=== PATIENT | female | born 1950 | race Two or more races ===

== ENCOUNTER 2019-07-31 13:07 | Inpatient (IN) | payer SELFPAY ==
[~2019-07-31] VITALS: Ht 149.9 cm; Wt 43.1 kg
[2019-07-31 13:07] VITALS: BP 168/72
[~2019-07-31 13:07] MED LIST: ACETAMINOPHEN-1 EAC1 ORAL; NORVASC5 MG ORAL
--- NOTE | 2019-07-31 13:07 | NUR ---
ED Nurse Note: Pt brought in by ambulance from home d/t mechanical fall. Pt reports left shoulder and arm pain 02/20. Pt receives HD M/W/F and last time she received HD was yesterday. Pt A+Ox4, libyan speaking primarily. Respirations even and unlabored on room air. Vitals stable as documented.
[2019-07-31] MEDS ORDERED: Acetaminophen 500mg (ES) tab ORAL ONE ×2 (13:15→13:19)
--- NOTE | 2019-07-31 13:15 | Emergency Room Report ---
History of Present Illness General Chief Complaint: Multiple Trauma/Fall Source: Patient (Bc Chapman MD) Present Illness HPI 69-year-old female presents with left shoulder pain left rib pain after mechanical fall in the bathroom no LOC did not hit head, no nausea no vomiting endorses sharp achy pain aggravated with movement alleviated with rest severity is mild, intermittent no shortness of breath patient presents for evaluation COVID-19 risk:Contact w/high r: No COVID-19 risk:Travel to affect: No Has patient experienced henderson: No (Bc Chapman MD) Allergies: Coded Allergies: No Known Allergies (Unverified , 06/01/14) Patient History Past Medical History: see triage record Now: No (Bc Chapman MD) Nursing Documentation-[facility] Hx Hypertension: Yes Hx Diabetes: Yes Hx Dialysis: Yes - M,W,F (Bc Chapman MD) Review of Systems All Other Systems: negative except mentioned in HPI (Bc Chapman MD) Physical Exam Vital Signs Date Time Temp Pulse Resp B/P (MAP) Pulse Ox O2 Delivery O2 Flow Rate FiO2 07/31/19 12:56 98.2 74 20 170/63 (98) 98 Room Air Sp02 EP Interpretation: reviewed, normal General Appearance: well appearing, no apparent distress, alert Head: normocephalic, atraumatic Eyes: bilateral eye PERRL, bilateral eye EOMI ENT: uvula midline, moist mucus membranes Neck: supple, thyroid normal, no bony tend, supple/symm/no masses Respiratory: lungs clear, no respiratory distress, no retraction, no accessory muscle use Cardiovascular #1: normal peripheral pulses, regular rate, rhythm, no edema, no gallop, no murmur Gastrointestinal: non tender, soft, no guarding, no rebound Musculoskeletal: other - Left chest wall tender to palpation no step-offs, left shoulder tender to palpation, left humerusObvious deformity, tender to palpation, left elbow tender to palpation no obvious deformity 2+ radial pulses , radial median ulnar nerve intact, patient left upper extremity 5 out of 5 speech clinician strength, back: No midline tenderness no step-offs Neurologic: alert, oriented x3 Psychiatric: mood/affect normal Skin: no rash, warm/dry (Bc Chapman MD) Medical Decision Making Diagnostic Impression: Primary Impression: Fall Qualified Codes: W19.XXXA - Unspecified fall, initial encounter Additional Impressions: Chest wall contusion Qualified Codes: S20.212A - Contusion of left front wall of thorax, initial encounter Clavicular fracture Qualified Codes: S42.002A - Fracture of unspecified part of left clavicle, initial encounter for closed fracture Ribs, multiple fractures Qualified Codes: S22.42XA - Multiple fractures of ribs, left side, initial encounter for closed fracture Hyperkalemia ER Course 69-year-old female presents with left rib fractures, left clavicle fracture will admit patient for incentive spirometry as well as pain control [facility] Laboratory Tests Test 07/31/19 15:00 White Blood Count 6.6 K/UL (4.8-10.8) Red Blood Count 3.89 M/UL (4.20-5.40) L Hemoglobin 12.8 G/DL (12.0-16.0) Hematocrit 38.7 % (37.0-47.0) Mean Corpuscular Volume 99 FL (80-99) Mean Corpuscular Hemoglobin 32.9 PG (27.0-31.0) H Mean Corpuscular Hemoglobin Concent 33.1 G/DL (32.0-36.0) Red Cell Distribution Width 15.0 % (11.6-14.8) H Platelet Count 259 K/UL (150-450) Mean Platelet Volume 6.1 FL (6.5-10.1) L Neutrophils (%) (Auto) 82.7 % (45.0-75.0) H Lymphocytes (%) (Auto) 11.4 % (20.0-45.0) L Monocytes (%) (Auto) 5.1 % (1.0-10.0) Eosinophils (%) (Auto) 0.1 % (0.0-3.0) Basophils (%) (Auto) 0.7 % (0.0-2.0) Sodium Level 137 MMOL/L (136-145) Potassium Level 5.6 MMOL/L (3.5-5.1) H Chloride Level 100 MMOL/L (98-107) Carbon Dioxide Level 24 MMOL/L (21-32) Anion Gap 13 mmol/L (5-15) Blood Urea Nitrogen 60 mg/dL (7-18) H Creatinine 6.6 MG/DL (0.55-1.30) H Estimated Glomerular Filtration Rate 6.2 mL/min (>60) Glucose Level 236 MG/DL (74-106) H Calcium Level 9.6 MG/DL (8.5-10.1) Total Bilirubin 0.4 MG/DL (0.2-1.0) Aspartate Amino Transferase (AST) 19 U/L (15-37) Alanine Aminotransferase (ALT) 12 U/L (12-78) Alkaline Phosphatase 223 U/L (46-116) H Total Protein 8.2 G/DL (6.4-8.2) Albumin 3.5 G/DL (3.4-5.0) Globulin 4.7 g/dL Albumin/Globulin Ratio 0.7 (1.0-2.7) L (Jero Monge MD) EKG Diagnostic Results EKG Time: 18:42 Rate: normal Rhythm: NSR ST Segments: no acute changes Other Impression Sinus rhythm, left axis deviation, no hyperacute T waves. Some T wave inversions in the lateral leads. (Jero Monge MD) Rhythm Strip Diag. Results Rhythm Strip Time: 18:42 EP Interpretation: yes Rate: 70 Rhythm: NSR, no PVC's, no ectopy (Jero Monge MD) CT/MRI/US Diagnostic Results CT/MRI/US Diagnostic Results : Impression Procedure: XRAY Humerus 2v L Indication: Left upper arm pain Findings: 2 views of the left humerus were obtained. No acute fractures, malalignment, erosions or periostitis are identified. Bones are diffusely osteopenic. There is a stent in the left upper arm and multiple surgical clips. IMPRESSION: No acute injury appreciated. Dictated By: Luisito Dawn MD Electronically Signed By: Luisito Dawn MD Signed Date/Time 07/31/19 4411 CC: Bc Chapman MD Procedure: XRAY Shoulder Compl L Indication: left shoulder pain Findings: 3 views of the left shoulder were obtained. No acute fracture or malalignment of the left shoulder identified. The left clavicle is fractured. Rib fractures are noted. Bones are osteopenic. There is a stent in the left upper arm. Aorta is calcified. IMPRESSION: Acute left clavicle fracture. Acute rib fractures. Please refer to the CT report. Dictated By: Luisito Dawn MD Electronically Signed By: Luisito Dawn MD Signed Date/Time 07/31/19 1436 CC: Bc Chapman MD Procedure: CT Chest no Contrast Indication: Mechanical fall. Left shoulder and rib pain Technique: Continuous helical transaxial imaging of the chest was obtained from the thoracic inlet to the upper abdomen. No intravenous contrast was administered. Coronal 2-D reformats were also obtained. Total Dose length Product (DLP): 120.[address] Dose Index Volume (CTDIvol): 3.2 mGy Comparison: none Findings: There are acute rib fractures on the left lateral side involving the fifth, sixth and seventh ribs. Posteriorly near the scapular, there are acute fractures of the fourth and fifth ribs. No fracture of the scapula is definitely identified on this study. Bones are osteopenic. The underlying lungs show no evidence of contusion injury, hemothorax or pneumothorax. There are patches of abnormal density within the upper lobes bilaterally likely scarring associated with some traction bronchiectasis. Posterior basilar scarring versus atelectasis also demonstrated. The heart is enlarged. Extensive aorta and coronary calcifications are present. There is a stent within the left axilla likely related to dialysis access. Calcifications are noted in the left upper lobe. IMPRESSION: Multiple rib fractures on the left side. No pneumothorax or other associated abnormality. Acute fracture of the left clavicle Arterial vascular disease Scarring involving the lungs bilaterally. Suspected old granulomatous disease. Other incidental findings as above The CT scanner at [facility] is accredited by the [employer] and the scans are performed using dose optimization techniques as appropriate to a performed exam including Automatic Exposure control. Dictated By: Luisito Dawn MD Electronically Signed By: Luisito Dawn MD Signed Date/Time 07/31/19 1436 CC: Bc Chapman MD (Bc Chapman MD) Last Vital Signs Date Time Temp Pulse Resp B/P (MAP) Pulse Ox O2 Delivery O2 Flow Rate FiO2 07/31/19 12:56 98.2 74 20 170/63 (98) 98 Room Air (Bc Chapman MD) Reevaluation Time: 16:39 Reevaluation Impression Patient signed out to me from previous provider pending labs. Potassium returned slightly elevated 5.6. She is scheduled for dialysis tomorrow. Creatinine elevated consistent with her kidney disease. Will give calcium gluconate, insulin and dextrose. Will upgrade the patient to telemetry. Remains in stable condition. Admitting team notified. (Jero Monge MD) Disposition: ADMITTED INPATIENT Condition: Stable Bc Chapman MD Jul 31, 2019 13:15 Jero Monge MD Jul 31, 2019 16:40
--- NOTE | 2019-07-31 14:41 | Diagnostic Imaging Report ---
Indication: Mechanical fall. Left shoulder and rib pain Technique: Continuous helical transaxial imaging of the chest was obtained from the thoracic inlet to the upper abdomen. No intravenous contrast was administered. Coronal 2-D reformats were also obtained. Total Dose length Product (DLP): 120.[address] Dose Index Volume (CTDIvol): 3.2 mGy Comparison: none Findings: There are acute rib fractures on the left lateral side involving the fifth, sixth and seventh ribs. Posteriorly near the scapular, there are acute fractures of the fourth and fifth ribs. No fracture of the scapula is definitely identified on this study. Bones are osteopenic. The underlying lungs show no evidence of contusion injury, hemothorax or pneumothorax. There are patches of abnormal density within the upper lobes bilaterally likely scarring associated with some traction bronchiectasis. Posterior basilar scarring versus atelectasis also demonstrated. The heart is enlarged. Extensive aorta and coronary calcifications are present. There is a stent within the left axilla likely related to dialysis access. Calcifications are noted in the left upper lobe. IMPRESSION: Multiple rib fractures on the left side. No pneumothorax or other associated abnormality. Acute fracture of the left clavicle Arterial vascular disease Scarring involving the lungs bilaterally. Suspected old granulomatous disease. Other incidental findings as above The CT scanner at [facility] is accredited by the [employer] and the scans are performed using dose optimization techniques as appropriate to a performed exam including Automatic Exposure control.
--- NOTE | 2019-07-31 14:42 | Diagnostic Imaging Report ---
Indication: left shoulder pain Findings: 3 views of the left shoulder were obtained. No acute fracture or malalignment of the left shoulder identified. The left clavicle is fractured. Rib fractures are noted. Bones are osteopenic. There is a stent in the left upper arm. Aorta is calcified. IMPRESSION: Acute left clavicle fracture. Acute rib fractures. Please refer to the CT report.
--- NOTE | 2019-07-31 14:43 | Diagnostic Imaging Report ---
Indication: Pain in the left arm/elbow injury Findings: 3 views of the left elbow were obtained. No acute fractures, malalignment, erosions or periostitis are identified. Bones are osteopenic. Soft tissues are unremarkable. Impression: No acute injury
--- NOTE | 2019-07-31 14:43 | Diagnostic Imaging Report ---
Indication: Left upper arm pain Findings: 2 views of the left humerus were obtained. No acute fractures, malalignment, erosions or periostitis are identified. Bones are diffusely osteopenic. There is a stent in the left upper arm and multiple surgical clips. IMPRESSION: No acute injury appreciated.
[2019-07-31 15:27] LABS: BASOPHILS % (AUTO) 0.7 % (0.0-2.0); EOSINOPHILS % (AUTO) 0.1 % (0.0-3.0); HEMATOCRIT 38.7 % (37.0-47.0); HEMOGLOBIN 12.8 G/DL (12.0-16.0); LYMPHOCYTES % (AUTO) 11.4 % (20.0-45.0); MEAN CORPUSCULAR VOLUME 99 FL (80-99); MONOCYTES % (AUTO) 5.1 % (1.0-10.0); NEUTROPHILS % (AUTO) 82.7 % (45.0-75.0); PLATELET COUNT 259 K/UL (150-450); RED BLOOD COUNT 3.89 M/UL (4.20-5.40); WHITE BLOOD COUNT 6.6 K/UL (4.8-10.8)
[2019-07-31] MEDS ORDERED: NORVASC2.5 MG ORAL (15:35)
[2019-07-31] MEDS ORDERED: MULTIVITAMINS1 EAC2 ORAL (15:35)
[2019-07-31] MEDS ORDERED: GUAIFENESIN DM118 M1 ORAL (15:35)
[2019-07-31] MEDS ORDERED: ACTOS15 MG ORAL (15:35)
[2019-07-31] MEDS ORDERED: GABAPENTIN100 MG ORAL (15:38)
[2019-07-31] MEDS ORDERED: LOSARTAN POTASS50 MG ORAL (15:38)
[2019-07-31] MEDS ORDERED: ACETAMINOP160 MG/54 ORAL (15:38)
[2019-07-31 15:46] LABS: ANION GAP 13 mmol/L (5-15); BLOOD UREA NITROGEN 60 mg/dL (7-18); CALCIUM 9.6 MG/DL (8.5-10.1); CARBON DIOXIDE 24 MMOL/L (21-32); CHLORIDE 100 MMOL/L (98-107); CREATININE 6.6 MG/DL (0.55-1.30); POTASSIUM 5.6 MMOL/L (3.5-5.1); SODIUM 137 MMOL/L (136-145)
[2019-07-31 15:50] LABS: ALANINE AMINOTRANSFERASE 12 U/L (12-78); ALBUMIN 3.5 G/DL (3.4-5.0); ALBUMIN/GLOBULIN RATIO 0.7 (1.0-2.7); ALKALINE PHOSPHATASE 223 U/L (46-116); ASPARTATE AMINO TRANSFERASE 19 U/L (15-37); BILIRUBIN,TOTAL 0.4 MG/DL (0.2-1.0)
--- NOTE | 2019-07-31 16:12 | NUR ---
ED Nurse Note: Son, Czech: [phone]
[2019-07-31] MEDS ORDERED: Insulin Human Regular 100units/ml 3ml IV ONE (16:45)
[2019-07-31] MEDS ORDERED: Calcium Gluconate 1gm/10ml vial IVP ONE (16:45)
[2019-07-31 17:00] VITALS: BP 169/79
[2019-07-31] MEDS ORDERED: Albuterol/Ipratropium 3ml neb HHN PRN (17:15)
[2019-07-31] MEDS ORDERED: Miralax 17gm pkt ORAL PRN (17:15)
--- NOTE | 2019-07-31 19:04 | NUR ---
HAND-OFF: Report given to Pineda Ayala RN. Pt in stable condition; plan of care endorsed.
--- NOTE | 2019-07-31 19:05 | NUR ---
ED Nurse Note: received report from Erin CAPPS. Will resume care of pt. all mistry.
[2019-07-31 19:29] VITALS: BP 157/73
--- NOTE | 2019-07-31 19:50 | NUR ---
ED Nurse Note: gave report to Pennie CAPPS for 209-2
--- NOTE | 2019-07-31 19:55 | NUR ---
TRANSFER TO FLOOR: Patient transferred to [facility] via gurney accompanied by 1rn jostin in stable condition as ordered, per dr. Marques. Report given to Pennie CAPPS. Belongings sent with patient
[2019-07-31 20:00] VITALS: BP 146/55
--- NOTE | 2019-07-31 20:48 | NUR ---
NURSE NOTES: Received patient report from Pineda Ayala RN, ER. Patient transferred without incident. AOx4. Patient in bed resting comfortably. There are no signs of distress or pain noted at this time. IV checked and flushed. There are no signs of erythema, infiltration, or bleeding at this time. Bed in the lowest position, bed alarm on, side rails up x3, call light within reach. Will continue plan of care.
[2019-07-31] MEDS ORDERED: Zolpidem 5mg tab ORAL PRN (21:00)
[2019-07-31] MEDS: Heparin 5000 units/ml inj SUBQ SCH (21:31)
[2019-07-31] MEDS: NovoLOG Insulin Flexpen SUBQ SCH (21:47)
[2019-08-01] VITALS: BP 135/63
[2019-08-01 04:00] VITALS: BP 155/62
[2019-08-01] MEDS: NovoLOG Insulin Flexpen SUBQ SCH ×4 (06:25→21:47)
[2019-08-01 06:54] LABS: BASOPHILS % (AUTO) 0.6 % (0.0-2.0); EOSINOPHILS % (AUTO) 0.9 % (0.0-3.0); HEMATOCRIT 37.1 % (37.0-47.0); HEMOGLOBIN 12.5 G/DL (12.0-16.0); LYMPHOCYTES % (AUTO) 17.1 % (20.0-45.0); MEAN CORPUSCULAR VOLUME 97 FL (80-99); MONOCYTES % (AUTO) 5.8 % (1.0-10.0); NEUTROPHILS % (AUTO) 75.7 % (45.0-75.0); PLATELET COUNT 255 K/UL (150-450); RED BLOOD COUNT 3.83 M/UL (4.20-5.40); RED CELL DISTRIBUTION WIDTH 13.7 % (11.6-14.8); WHITE BLOOD COUNT 6.3 K/UL (4.8-10.8)
--- NOTE | 2019-08-01 07:21 | NUR ---
HAND-OFF: Report given to JEFRY Wheeler. Patient does not show signs of distress. Endorsed plan of care.
--- NOTE | 2019-08-01 07:25 | NUR ---
NURSE NOTES: pt. in bed help pt eat. Pt AOx4 has some pain at this time asked to have pain meds after breakfast. Pt on casing runner no chest pain or respiratory distress. Bed alarm on, side rail upx2, call light within reach. Will continue to monitor pt.
[2019-08-01 07:51] LABS: ALANINE AMINOTRANSFERASE 22 U/L (12-78); ALBUMIN 3.1 G/DL (3.4-5.0); ALBUMIN/GLOBULIN RATIO 0.7 (1.0-2.7); ALKALINE PHOSPHATASE 202 U/L (46-116); ANION GAP 14 mmol/L (5-15); ASPARTATE AMINO TRANSFERASE 21 U/L (15-37); BILIRUBIN,TOTAL 0.5 MG/DL (0.2-1.0); BLOOD UREA NITROGEN 64 mg/dL (7-18); CALCIUM 9.1 MG/DL (8.5-10.1); CARBON DIOXIDE 19 MMOL/L (21-32); CHLORIDE 99 MMOL/L (98-107); CHOLESTEROL 147 MG/DL (< 200); CREATININE 7.3 MG/DL (0.55-1.30); HDL CHOLESTEROL 60 MG/DL (40-60); POTASSIUM 5.7 MMOL/L (3.5-5.1); SODIUM 132 MMOL/L (136-145); TRIGLYCERIDES 109 MG/DL (30-150)
[2019-08-01 08:00] VITALS: BP 147/57
[2019-08-01] MEDS: HYDROcodone/Acetamin 10/325 tab ORAL PRN ×2 (09:01→15:33)
[2019-08-01] MEDS: Losartan 50mg tab ORAL SCH (09:01)
[2019-08-01] MEDS: Heparin 5000 units/ml inj SUBQ SCH ×2 (09:03→21:46)
--- NOTE | 2019-08-01 10:30 | Consultation ---
Consult Note Consult Note Asked to evaluate at the request of Dr. kenny for dialysis management. Patient last dialysis was 4 days ago. Patient came into the hospital as a result of the fall. She has been on dialysis for 3 years. Dialysis days are Sunday. ER Chief Complaint: Multiple Trauma/Fall 69-year-old female presents with left shoulder pain left rib pain after mechanical fall in the bathroom no LOC did not hit head, no nausea no vomiting endorses sharp achy pain aggravated with movement alleviated with rest severity is mild, intermittent no shortness of breath patient presents for evaluation COVID-19 risk:Contact w/high r: No COVID-19 risk:Travel to affect: No Has patient experienced henderson: No No Known Allergies (Unverified , 06/01/14) Hx Hypertension: Yes Hx Diabetes: Yes Hx Dialysis: Yes - M,W,F Patient interviewed through a brim edge trimmer Examined Data reviewed . Assessment/Plan End-stage renal disease on hemodialysis Sunday Fall Chest wall contusion Clavicular fracture Ribs, multiple fractures Hyperkalemia due to end-stage renal disease History of hypertension History of diabetes mellitus Dialysis urgent with low potassium bath Keep the blood pressure and blood sugar under control Pain management for fractures Per orders Marcelo Skaggs MD Aug 01, 2019 10:30
[2019-08-01] MEDS: Docusate 100mg cap ORAL SCH ×2 (10:45→18:00)
--- NOTE | 2019-08-01 11:37 | NUR ---
RD ASSESSMENT & RECOMMENDATIONS SEE CARE ACTIVITY FOR COMPLETE ASSESSMENT DAILY ESTIMATED NEEDS: Needs based on ESRD on HD 44.5kg bedscale wt 30-35 kcals/kg 1871-3832 total kcals 1.2-1.8 g protein/kg 53-80 g total protein Fluid per MD, on HD NUTRITION DIAGNOSIS: Increased kcal and pro needs r/t renal dysfunction as evidenced by pt w/ ESRD on HD CURRENT DIET: CCHO MED PO DIET RECOMMENDATIONS: Rec RENAL/ CCHO LOW diet ADDITIONAL RECOMMENDATIONS: 1) Obtain a calibrated bed scale wt 2) Add Nepro qdaily if tolerated 3) High pro snacks in b/w meal s
[2019-08-01 12:00] VITALS: BP 95/82
--- NOTE | 2019-08-01 12:52 | Consultation ---
History of Present Illness General Date patient seen: Aug 01, 2019 Chief Complaint: Multiple Trauma/Fall Present Illness HPI 69-year-old female with hx of DM, HTN, ESRF, on HD (M, W, F) presented to ER with left shoulder pain, left rib pain after mechanical fall in the bathroom. She had sharp achy pain aggravated with movement alleviated with rest severity is mild. she was found to have rib and clavicula fracture. Because of her high K, she is admitted to telemetry. Allergies: Coded Allergies: No Known Allergies (Unverified , 06/01/14) Medication History Scheduled Amlodipine Besylate (Norvasc), 5 MG ORAL DAILY Amlodipine Besylate (Norvasc), 2.5 MG ORAL DAILY, (Reported) Gabapentin* (Gabapentin*), 100 MG ORAL BEDTIME, (Reported) Losartan Potassium* (Losartan Potassium*), 50 MG ORAL DAILY, (Reported) Multivitamins* (Multivitamins*), 1 TAB ORAL DAILY, (Reported) Pioglitazone Hcl* (Actos*), 15 MG ORAL DAILY, (Reported) Scheduled PRN Acetaminophen With Codeine (T#3) (Tylenol #3 Tab*), 1 TAB ORAL Q8H PRN for For Pain Acetaminophen* (Acetaminophen*), 500 MG ORAL Q8HR PRN for Mild Pain/Temp > 100.5 , (Reported) Guaifenesin/Dextromethorphan* (Guaifenesin Dm Syrup*), 5 ML ORAL Q6H PRN for FOR COUGH, (Reported) Patient History Healthcare decision maker Resuscitation status Full Code Advanced Directive on File Past Medical/Surgical History Past Medical/Surgical History: (1) History of hypertension (2) History of diabetes mellitus (3) Hemodialysis patient (4) ESRF (end stage renal failure) Review of Systems All Other Systems: negative except mentioned in HPI Physical Exam General Appearance: cachetic, thin Lines, tubes and drains: peripheral HEENT: normocephalic Neck: non-tender, normal alignment Respiratory/Chest: chest wall non-tender, lungs clear, normal breath sounds Breasts: no masses Cardiovascular/Chest: normal peripheral pulses Abdomen: normal bowel sounds Extremities: normal range of motion, normal inspection Skin Exam: normal pigmentation Last 24 Hour Vital Signs Date Time Temp Pulse Resp B/P (MAP) Pulse Ox O2 Delivery O2 Flow Rate FiO2 08/01/19 09:01 147/57 08/01/19 09:01 77 147/57 08/01/19 09:00 Room Air 08/01/19 08:00 98.1 77 18 147/57 (87) 97 08/01/19 08:00 79 08/01/19 04:00 75 08/01/19 04:00 98.6 79 16 155/62 (93) 98 08/01/19 00:00 97.5 76 16 135/63 (87) 100 08/01/19 00:00 62 07/31/19 21:00 Room Air 07/31/19 20:43 Room Air 07/31/19 20:38 71 07/31/19 20:00 97.7 76 16 146/55 (85) 100 07/31/19 19:55 97.9 65 18 157/73 98 Room Air 07/31/19 19:29 97.9 65 18 157/73 98 Room Air 07/31/19 17:00 97.9 67 20 169/79 98 Room Air 07/31/19 13:07 98.1 71 20 168/72 97 Room Air 07/31/19 13:07 71 20 Room Air 07/31/19 12:56 98.2 74 20 170/63 (98) 98 Room Air Intake and Output 07/31/19 08/01/19 19:00 07:00 Output Total 200 ml Balance -200 ml Output Urine Total 200 ml # Voids 2 Laboratory Tests Test 07/31/19 15:00 08/01/19 05:58 White Blood Count 6.6 K/UL (4.8-10.8) 6.3 K/UL (4.8-10.8) Red Blood Count 3.89 M/UL (4.20-5.40) L 3.83 M/UL (4.20-5.40) L Hemoglobin 12.8 G/DL (12.0-16.0) 12.5 G/DL (12.0-16.0) Hematocrit 38.7 % (37.0-47.0) 37.1 % (37.0-47.0) Mean Corpuscular Volume 99 FL (80-99) 97 FL (80-99) Mean Corpuscular Hemoglobin 32.9 PG (27.0-31.0) H 32.7 PG (27.0-31.0) H Mean Corpuscular Hemoglobin Concent 33.1 G/DL (32.0-36.0) 33.8 G/DL (32.0-36.0) Red Cell Distribution Width 15.0 % (11.6-14.8) H 13.7 % (11.6-14.8) Platelet Count 259 K/UL (150-450) 255 K/UL (150-450) Mean Platelet Volume 6.1 FL (6.5-10.1) L 5.1 FL (6.5-10.1) L Neutrophils (%) (Auto) 82.7 % (45.0-75.0) H 75.7 % (45.0-75.0) H Lymphocytes (%) (Auto) 11.4 % (20.0-45.0) L 17.1 % (20.0-45.0) L Monocytes (%) (Auto) 5.1 % (1.0-10.0) 5.8 % (1.0-10.0) Eosinophils (%) (Auto) 0.1 % (0.0-3.0) 0.9 % (0.0-3.0) Basophils (%) (Auto) 0.7 % (0.0-2.0) 0.6 % (0.0-2.0) Sodium Level 137 MMOL/L (136-145) 132 MMOL/L (136-145) L Potassium Level 5.6 MMOL/L (3.5-5.1) H 5.7 MMOL/L (3.5-5.1) H Chloride Level 100 MMOL/L (98-107) 99 MMOL/L (98-107) Carbon Dioxide Level 24 MMOL/L (21-32) 19 MMOL/L (21-32) L Anion Gap 13 mmol/L (5-15) 14 mmol/L (5-15) Blood Urea Nitrogen 60 mg/dL (7-18) H 64 mg/dL (7-18) H Creatinine 6.6 MG/DL (0.55-1.30) H 7.3 MG/DL (0.55-1.30) H Estimat Glomerular Filtration Rate 6.2 mL/min (>60) 5.6 mL/min (>60) Glucose Level 236 MG/DL (74-106) H 157 MG/DL (74-106) H Calcium Level 9.6 MG/DL (8.5-10.1) 9.1 MG/DL (8.5-10.1) Total Bilirubin 0.4 MG/DL (0.2-1.0) 0.5 MG/DL (0.2-1.0) Aspartate Amino Transf (AST/SGOT) 19 U/L (15-37) 21 U/L (15-37) Alanine Aminotransferase (ALT/SGPT) 12 U/L (12-78) 22 U/L (12-78) Alkaline Phosphatase 223 U/L (46-116) H 202 U/L (46-116) H Total Protein 8.2 G/DL (6.4-8.2) 7.6 G/DL (6.4-8.2) Albumin 3.5 G/DL (3.4-5.0) 3.1 G/DL (3.4-5.0) L Globulin 4.7 g/dL 4.5 g/dL Albumin/Globulin Ratio 0.7 (1.0-2.7) L 0.7 (1.0-2.7) L Hemoglobin A1c 6.2 % (4.3-6.0) H Triglycerides Level 109 MG/DL (30-150) Cholesterol Level 147 MG/DL (< 200) LDL Cholesterol 84 mg/dL (<100) HDL Cholesterol 60 MG/DL (40-60) Cholesterol/HDL Ratio 2.5 (3.3-4.4) L Thyroid Stimulating Hormone (TSH) 1.118 uiU/mL (0.358-3.740) Hepatitis B Surface Antigen Pending Height (Feet): 4 Height (Inches): 11.00 Weight (Pounds): 85 Medications Current Medications Medications (Trade) Dose Ordered Sig/Allison Route PRN Reason Start Time Stop Time Status Last Admin Dose Admin Acetaminophen (Tylenol) 650 mg Q4H PRN ORAL fever 07/31/19 17:15 08/30/19 17:14 Acetaminophen/ Hydrocodone Bitart ([place] 10/325) 1 tab Q4H PRN ORAL For Pain 07/31/19 17:15 08/07/19 17:14 08/01/19 09:01 Albuterol/ Ipratropium (Albuterol/ Ipratropium) 3 ml Q6H PRN HHN dyspnea 07/31/19 17:15 08/05/19 17:14 Amlodipine Besylate (Norvasc) 2.5 mg DAILY ORAL 08/01/19 09:00 08/31/19 08:59 08/01/19 09:01 Clonidine HCl (Catapres Tab) 0.1 mg Q4H PRN ORAL For High Blood Pressure 07/31/19 17:15 10/29/19 17:14 Dextrose (Dextrose 50%) 25 ml Q30M PRN IV Hypoglycemia 07/31/19 17:15 10/29/19 17:14 Dextrose (Dextrose 50%) 50 ml Q30M PRN IV Hypoglycemia 07/31/19 17:15 10/29/19 17:14 Docusate Sodium (Colace) 100 mg TWICE A DAY ORAL 08/01/19 10:45 08/31/19 10:44 Gabapentin (Neurontin) 100 mg BEDTIME ORAL 07/31/19 21:00 08/30/19 20:59 07/31/19 21:29 Heparin Sodium (Porcine) (Heparin 5000 units/ml) 5,000 units EVERY 12 HOURS SUBQ 07/31/19 21:00 09/14/19 20:59 08/01/19 09:03 Insulin Aspart (NovoLOG) BEFORE MEALS AND HS SUBQ 07/31/19 21:00 10/29/19 20:59 08/01/19 06:25 Losartan Potassium (Cozaar) 50 mg DAILY ORAL 08/01/19 09:00 08/31/19 08:59 08/01/19 09:01 Ondansetron HCl (Zofran) 4 mg Q6H PRN IVP Nausea & Vomiting 07/31/19 17:15 08/30/19 17:14 Pantoprazole (Protonix) 40 mg BID ORAL 08/01/19 10:45 08/31/19 10:44 Polyethylene Glycol (Miralax) 17 gm HSPRN PRN ORAL Constipation 07/31/19 17:15 08/30/19 17:14 Zolpidem Tartrate (Ambien) 5 mg HSPRN PRN ORAL Insomnia 07/31/19 21:00 08/07/19 20:59 Assessment/Plan Problem List: (1) Hyperkalemia ICD Codes: E87.5 - Hyperkalemia SNOMED: 85971281 (2) Clavicular fracture ICD Codes: S42.009A - Fracture of unspecified part of unspecified clavicle, initial encounter for closed fracture SNOMED: 20739950 Qualifiers: Qualified Codes: S42.002A - Fracture of unspecified part of left clavicle, initial encounter for closed fracture (3) Hemodialysis patient ICD Codes: Z99.2 - Dependence on renal dialysis SNOMED: 661047332 (4) Ribs, multiple fractures ICD Codes: S22.49XA - Multiple fractures of ribs, unspecified side, initial encounter for closed fracture SNOMED: 3210878 Qualifiers: Qualified Codes: S22.42XA - Multiple fractures of ribs, left side, initial encounter for closed fracture (5) ESRF (end stage renal failure) ICD Codes: N18.6 - End stage renal disease SNOMED: 90747869 (6) Fall ICD Codes: W19.XXXA - Unspecified fall, initial encounter SNOMED: 2851453, 339140693 Qualifiers: Qualified Codes: W19.XXXA - Unspecified fall, initial encounter (7) Chest wall contusion ICD Codes: S20.219A - Contusion of unspecified front wall of thorax, initial encounter SNOMED: 55293399, 157036917 Qualifiers: Qualified Codes: S20.212A - Contusion of left front wall of thorax, initial encounter (8) History of hypertension ICD Codes: Z86.79 - Personal history of other diseases of the circulatory system SNOMED: 350070872 (9) History of diabetes mellitus ICD Codes: Z86.39 - Personal history of other endocrine, nutritional and metabolic disease SNOMED: 120107562 Assessment/Plan: pain management HD by nephrology sliding scale diabetic and renal diet Reji Riojas MD Aug 01, 2019 12:52
--- NOTE | 2019-08-01 13:25 | NUR ---
pt received hd via left avfistula with strong thrill and bruit by pat kessler /stoney from 1025 to 1325 bp support with ns tolerated well df 15ooml.vs stable endorsed to lyndsey.
[2019-08-01 16:00] VITALS: BP 147/66
--- NOTE | 2019-08-01 16:25 | NUR ---
CASE MANAGEMENT:REVIEW 69 YR OLD FEMALE BIBA FROM HOME CC: S/P FALL PMH: ESRD ON HD SI: RIB AND CLAVICLE FRACTURE CHEST CONTUSION. HYPERKALEMIA 98.2 74 20 170/63 98% ON RA K+5.6 BUN+60 CR+6.6 GLUCOSE+236 IS: TYLENOL PO IV CA GLUCONATE IV INSULIN IV D50 CXR XRAY SHOULDER,ELBOW AND HUMERUS : TO TELEMETRY DCP: FROM HOME
--- NOTE | 2019-08-01 19:28 | NUR ---
HAND-OFF: Report given to Nanda/JEFRY, pt in stable condition.
--- NOTE | 2019-08-01 19:40 | NUR ---
NURSE NOTES: pt is sitting up in bed, is legally blind and has left clavicle fractures, requires full assistance feeding, bathing and toileting. Pt is AOx4, jamaican speaking. Pt denies chest pain, no respiratory distress. Bed alarm on, side rail upx2, call light within reach. Will continue to monitor pt.
[2019-08-01 20:00] VITALS: BP 124/54
[2019-08-01] MEDS ORDERED: Augmentin 875mg Tab ORAL SCH (21:00)
--- NOTE | 2019-08-01 21:38 | History & Physical ---
History and Physical History & Physicial job # [id number] Rafael Marques MD Aug 01, 2019 21:38
[2019-08-01] MEDS ORDERED: D5NS 1000ml IV ONE (21:44)
[2019-08-01] MEDS ORDERED: Tubing IV Secondary IV ONE (21:44)
[2019-08-02 00:12] VITALS: BP 117/51
[2019-08-02 04:00] VITALS: BP 145/57
[2019-08-02] MEDS: NovoLOG Insulin Flexpen SUBQ SCH ×4 (05:59→21:00)
--- NOTE | 2019-08-02 07:38 | NUR ---
HAND-OFF: Report given to JEFRY Wheeler.
--- NOTE | 2019-08-02 08:02 | NUR ---
NURSE NOTES: pt in bed awake, food tray is at bedside. pt on cardiac exercise specialist no signs of cardiac or respiratory distress at this time. Call light within reach, bed in lowest position and locked. Rails up x 2, and bed alarm on for safety. Will continue to monitor pt.
[2019-08-02 08:14] VITALS: BP 143/66
[2019-08-02 08:24] LABS: ALANINE AMINOTRANSFERASE 14 U/L (12-78); ALBUMIN 3.1 G/DL (3.4-5.0); ALBUMIN/GLOBULIN RATIO 0.7 (1.0-2.7); ALKALINE PHOSPHATASE 175 U/L (46-116); ANION GAP 13 mmol/L (5-15); ASPARTATE AMINO TRANSFERASE 17 U/L (15-37); BILIRUBIN,TOTAL 0.5 MG/DL (0.2-1.0); BLOOD UREA NITROGEN 51 mg/dL (7-18); CALCIUM 9.5 MG/DL (8.5-10.1); CARBON DIOXIDE 28 MMOL/L (21-32); CHLORIDE 102 MMOL/L (98-107); CREATININE 5.4 MG/DL (0.55-1.30); GAMMA GLUTAMYL TRANSPEPTIDASE 10 U/L (5-85); PHOSPHORUS 6.1 MG/DL (2.5-4.9); POTASSIUM 4.5 MMOL/L (3.5-5.1); SODIUM 143 MMOL/L (136-145)
[2019-08-02 08:27] LABS: BASOPHILS % (AUTO) 0.7 % (0.0-2.0); EOSINOPHILS % (AUTO) 0.7 % (0.0-3.0); HEMATOCRIT 34.6 % (37.0-47.0); HEMOGLOBIN 11.6 G/DL (12.0-16.0); LYMPHOCYTES % (AUTO) 17.3 % (20.0-45.0); MEAN CORPUSCULAR VOLUME 98 FL (80-99); MONOCYTES % (AUTO) 6.7 % (1.0-10.0); NEUTROPHILS % (AUTO) 74.6 % (45.0-75.0); PLATELET COUNT 211 K/UL (150-450); RED BLOOD COUNT 3.53 M/UL (4.20-5.40); RED CELL DISTRIBUTION WIDTH 13.8 % (11.6-14.8); WHITE BLOOD COUNT 5.4 K/UL (4.8-10.8)
[2019-08-02] MEDS: HYDROcodone/Acetamin 10/325 tab ORAL PRN ×2 (08:58→18:26)
[2019-08-02] MEDS: Losartan 50mg tab ORAL SCH (08:59)
[2019-08-02] MEDS: Docusate 100mg cap ORAL SCH ×4 (08:59→18:19)
[2019-08-02] MEDS: Heparin 5000 units/ml inj SUBQ SCH ×2 (09:04→21:00)
--- NOTE | 2019-08-02 10:29 | Nephrology Progress Note ---
Assessment/Plan Problem List: (1) Hyperkalemia (2) ESRF (end stage renal failure) (3) Hemodialysis patient (4) History of hypertension (5) History of diabetes mellitus (6) Clavicular fracture Assessment End-stage renal disease on hemodialysis Sunday Fall Chest wall contusion Clavicular fracture Ribs, multiple fractures Hyperkalemia due to end-stage renal disease History of hypertension History of diabetes mellitus Plan Dialysis urgent with low potassium bath done yesterday Per kalemia not corrected Add phosphate binders Keep the blood pressure and blood sugar under control Pain management for fractures Per orders Subjective ROS Limited/Unobtainable: No Constitutional: Reports: malaise Objective Objective Last 24 Hour Vital Signs Date Time Temp Pulse Resp B/P (MAP) Pulse Ox O2 Delivery O2 Flow Rate FiO2 08/02/19 09:27 101 18 96 Nasal Cannula 2.0 28 08/02/19 09:27 96 Nasal Cannula 2.0 28 08/02/19 08:59 143/66 08/02/19 08:59 80 143/66 08/02/19 08:14 97.6 80 18 143/66 (91) 98 08/02/19 04:00 98.2 89 16 145/57 (86) 95 08/02/19 04:00 86 08/02/19 00:12 98.1 87 16 117/51 (73) 99 08/02/19 00:00 71 08/01/19 21:00 Room Air 08/01/19 20:00 97.7 87 18 124/54 (77) 97 08/01/19 20:00 88 08/01/19 19:28 81 16 95 Room Air 21 08/01/19 16:00 98.3 87 17 147/66 (93) 94 08/01/19 16:00 88 08/01/19 12:00 68 08/01/19 12:00 97.8 87 19 95/82 (86) 94 Intake and Output 08/01/19 08/02/19 19:00 07:00 Intake Total 690 ml 240 ml Output Total 1500 ml 100 ml Balance -810 ml 140 ml Intake Other 690 ml 240 ml Output Urine Total 100 ml Stool Total 0 ml Hemodialysis UF 1500 ml # Voids 2 Laboratory Tests 08/02/19 06:55: White Blood Count 5.4, Red Blood Count 3.53L, Hemoglobin 11.6L, Hematocrit 34.6L , Mean Corpuscular Volume 98, Mean Corpuscular Hemoglobin 32.7H, Mean Corpuscular Hemoglobin Concent 33.4, Red Cell Distribution Width 13.8, Platelet Count 211, Mean Platelet Volume 5.3L, Neutrophils (%) (Auto) 74.6, Lymphocytes ( %) (Auto) 17.3L, Monocytes (%) (Auto) 6.7, Eosinophils (%) (Auto) 0.7, Basophils (%) (Auto) 0.7, Sodium Level 143, Potassium Level 4.5, Chloride Level 102, Carbon Dioxide Level 28, Anion Gap 13, Blood Urea Nitrogen 51H, Creatinine 5.4H, Estimat Glomerular Filtration Rate 7.9, Glucose Level 148H, Hemoglobin A1c 6.5H, Calcium Level 9.5, Phosphorus Level 6.1H, Magnesium Level 2.8H, Total Bilirubin 0.5, Gamma Glutamyl Transpeptidase 10, Aspartate Amino Transf (AST/ SGOT) 17, Alanine Aminotransferase (ALT/SGPT) 14, Alkaline Phosphatase 175H, Total Protein 7.5, Albumin 3.1L, Globulin 4.4, Albumin/Globulin Ratio 0.7L, Vitamin B12 Level 1712H, Folate 15.4 Height (Feet): 4 Height (Inches): 11.00 Weight (Pounds): 89 General Appearance: mild distress - Pain left shoulder Cardiovascular: other - Variable rate Respiratory/Chest: decreased breath sounds Abdomen: soft Marcelo Skaggs MD Aug 02, 2019 10:29
[2019-08-02 12:00] VITALS: BP 137/58
--- NOTE | 2019-08-02 13:52 | Internal Med Progress Note ---
Subjective Date of Service: Aug 02, 2019 Physician Name AlpaStephen Attending Physician Rafael Marques MD Current Medications Medications (Trade) Dose Ordered Sig/Allison Route PRN Reason Start Time Stop Time Status Last Admin Dose Admin Acetaminophen (Tylenol) 650 mg Q4H PRN ORAL fever 07/31/19 17:15 08/30/19 17:14 Acetaminophen/ Hydrocodone Bitart ([place] 10/325) 1 tab Q4H PRN ORAL For Pain 07/31/19 17:15 08/07/19 17:14 08/02/19 08:58 Albuterol/ Ipratropium (Albuterol/ Ipratropium) 3 ml Q6H PRN HHN dyspnea 07/31/19 17:15 08/05/19 17:14 Amlodipine Besylate (Norvasc) 2.5 mg DAILY ORAL 08/01/19 09:00 08/31/19 08:59 08/02/19 08:59 Clonidine HCl (Catapres Tab) 0.1 mg Q4H PRN ORAL For High Blood Pressure 07/31/19 17:15 10/29/19 17:14 Dextrose (Dextrose 50%) 25 ml Q30M PRN IV Hypoglycemia 07/31/19 17:15 10/29/19 17:14 Dextrose (Dextrose 50%) 50 ml Q30M PRN IV Hypoglycemia 07/31/19 17:15 10/29/19 17:14 Docusate Sodium (Colace) 100 mg TWICE A DAY ORAL 08/01/19 10:45 08/31/19 10:44 08/02/19 09:00 Gabapentin (Neurontin) 100 mg BEDTIME ORAL 07/31/19 21:00 08/30/19 20:59 08/01/19 21:47 Heparin Sodium (Porcine) (Heparin 5000 units/ml) 5,000 units EVERY 12 HOURS SUBQ 07/31/19 21:00 09/14/19 20:59 08/02/19 09:04 Insulin Aspart (NovoLOG) BEFORE MEALS AND HS SUBQ 07/31/19 21:00 10/29/19 20:59 08/02/19 12:39 Losartan Potassium (Cozaar) 50 mg DAILY ORAL 08/01/19 09:00 08/31/19 08:59 08/02/19 08:59 Ondansetron HCl (Zofran) 4 mg Q6H PRN IVP Nausea & Vomiting 07/31/19 17:15 08/30/19 17:14 Pantoprazole (Protonix) 40 mg BID ORAL 08/01/19 10:45 08/31/19 10:44 08/02/19 08:58 Polyethylene Glycol (Miralax) 17 gm HSPRN PRN ORAL Constipation 07/31/19 17:15 08/30/19 17:14 Sevelamer Carbonate (Renvela) 800 mg THREE TIMES A DAY ORAL 08/02/19 13:00 10/31/19 12:59 08/02/19 12:39 Zolpidem Tartrate (Ambien) 5 mg HSPRN PRN ORAL Insomnia 07/31/19 21:00 08/07/19 20:59 Allergies: Coded Allergies: No Known Allergies (Unverified , 06/01/14) ROS Limited/Unobtainable: No Constitutional: Reports: no symptoms HEENT: Reports: no symptoms Cardiovascular: Reports: chest pain Respiratory: Reports: no symptoms Gastrointestinal/Abdominal: Reports: no symptoms Genitourinary: Reports: no symptoms Neurologic/Psychiatric: Reports: no symptoms Subjective 69 YO F admitted with rib and shoulder pain after mechanical fall. Cover for Int Med - Dr Marques Objective Last Vital Signs Date Time Temp Pulse Resp B/P (MAP) Pulse Ox O2 Delivery O2 Flow Rate FiO2 08/02/19 09:27 101 18 96 Nasal Cannula 2.0 28 08/02/19 08:59 143/66 08/02/19 08:14 97.6 General Appearance: WD/WN, no apparent distress, alert EENT: PERRL/EOMI, normal ENT inspection Neck: non-tender, normal alignment, supple, normal inspection Cardiovascular: normal peripheral pulses, normal rate, regular rhythm, no gallop/murmur, no JVD Respiratory/Chest: chest wall non-tender, lungs clear, no respiratory distress , no accessory muscle use, decreased breath sounds Abdomen: normal bowel sounds, non tender, soft, no organomegaly, no mass Extremities: normal range of motion, non-tender 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, no motor/sensory deficits Skin: normal pigmentation, warm/dry Laboratory Tests Test 08/02/19 06:55 White Blood Count 5.4 K/UL (4.8-10.8) Red Blood Count 3.53 M/UL (4.20-5.40) L Hemoglobin 11.6 G/DL (12.0-16.0) L Hematocrit 34.6 % (37.0-47.0) L Mean Corpuscular Volume 98 FL (80-99) Mean Corpuscular Hemoglobin 32.7 PG (27.0-31.0) H Mean Corpuscular Hemoglobin Concent 33.4 G/DL (32.0-36.0) Red Cell Distribution Width 13.8 % (11.6-14.8) Platelet Count 211 K/UL (150-450) Mean Platelet Volume 5.3 FL (6.5-10.1) L Neutrophils (%) (Auto) 74.6 % (45.0-75.0) Lymphocytes (%) (Auto) 17.3 % (20.0-45.0) L Monocytes (%) (Auto) 6.7 % (1.0-10.0) Eosinophils (%) (Auto) 0.7 % (0.0-3.0) Basophils (%) (Auto) 0.7 % (0.0-2.0) Sodium Level 143 MMOL/L (136-145) Potassium Level 4.5 MMOL/L (3.5-5.1) Chloride Level 102 MMOL/L (98-107) Carbon Dioxide Level 28 MMOL/L (21-32) Anion Gap 13 mmol/L (5-15) Blood Urea Nitrogen 51 mg/dL (7-18) H Creatinine 5.4 MG/DL (0.55-1.30) H Estimat Glomerular Filtration Rate 7.9 mL/min (>60) Glucose Level 148 MG/DL (74-106) H Hemoglobin A1c 6.5 % (4.3-6.0) H Calcium Level 9.5 MG/DL (8.5-10.1) Phosphorus Level 6.1 MG/DL (2.5-4.9) H Magnesium Level 2.8 MG/DL (1.8-2.4) H Total Bilirubin 0.5 MG/DL (0.2-1.0) Gamma Glutamyl Transpeptidase 10 U/L (5-85) Aspartate Amino Transf (AST/SGOT) 17 U/L (15-37) Alanine Aminotransferase (ALT/SGPT) 14 U/L (12-78) Alkaline Phosphatase 175 U/L (46-116) H Total Protein 7.5 G/DL (6.4-8.2) Albumin 3.1 G/DL (3.4-5.0) L Globulin 4.4 g/dL Albumin/Globulin Ratio 0.7 (1.0-2.7) L Vitamin B12 Level 1712 PG/ML (193-986) H Folate 15.4 NG/ML (8.6-58.9) Intake and Output 08/01/19 08/02/19 19:00 07:00 Intake Total 690 ml 240 ml Output Total 1500 ml 100 ml Balance -810 ml 140 ml Other 690 ml 240 ml Output Urine Total 100 ml Stool Total 0 ml Hemodialysis UF 1500 ml # Voids 2 Assessment/Plan Problem List: (1) Diabetes mellitus Assessment & Plan: continue novolog sliding scale (2) Hypertension (3) Multiple fractures of ribs, left side, initial encounter for closed fracture Assessment & Plan: pain management (4) Closed left clavicular fracture Assessment & Plan: pain management (5) Left shoulder pain (6) Rib pain on left side (7) ESRF (end stage renal failure) Assessment & Plan: Nephrology=Dr Skaggs. Hemodialysis 08/01/19 (8) Hemodialysis patient Status: not improved Stephen Yuen MD Aug 02, 2019 13:52
[2019-08-02 16:00] VITALS: BP 129/65
[2019-08-02 20:00] VITALS: BP 146/52
--- NOTE | 2019-08-02 20:29 | NUR ---
NURSE NOTES: Pt is awake and alert and oriented xpt is sitting up in bed, is legally blind and has left clavicle fractures, requires full assistance feeding, bathing and toileting. Pt is AOx4, macedonian speaking. Pt denies chest pain, no respiratory distress. Bed alarm on, side rail upx2, call light within reach. Will continue to monitor pt.
--- NOTE | 2019-08-02 21:07 | NUR ---
HAND-OFF: Report given to Shama/matteo, pt in stable condition.
[2019-08-03] VITALS: BP 152/60
[2019-08-03 04:00] VITALS: BP 148/80
[2019-08-03] MEDS: NovoLOG Insulin Flexpen SUBQ SCH ×4 (06:30→21:11)
--- NOTE | 2019-08-03 07:14 | NUR ---
HAND-OFF: Report given to JEFRY Wheeler.
[2019-08-03 07:15] LABS: BASOPHILS % (AUTO) 0.8 % (0.0-2.0); EOSINOPHILS % (AUTO) 2.8 % (0.0-3.0); HEMATOCRIT 32.7 % (37.0-47.0); HEMOGLOBIN 10.9 G/DL (12.0-16.0); LYMPHOCYTES % (AUTO) 27.2 % (20.0-45.0); MEAN CORPUSCULAR VOLUME 97 FL (80-99); MONOCYTES % (AUTO) 8.7 % (1.0-10.0); NEUTROPHILS % (AUTO) 60.5 % (45.0-75.0); PLATELET COUNT 210 K/UL (150-450); RED BLOOD COUNT 3.38 M/UL (4.20-5.40); RED CELL DISTRIBUTION WIDTH 13.2 % (11.6-14.8); WHITE BLOOD COUNT 4.5 K/UL (4.8-10.8)
[2019-08-03 08:00] VITALS: BP 185/75
[2019-08-03 08:18] LABS: ALANINE AMINOTRANSFERASE 20 U/L (12-78); ALBUMIN 2.7 G/DL (3.4-5.0); ALBUMIN/GLOBULIN RATIO 0.6 (1.0-2.7); ALKALINE PHOSPHATASE 167 U/L (46-116); ANION GAP 14 mmol/L (5-15); ASPARTATE AMINO TRANSFERASE 23 U/L (15-37); BILIRUBIN,TOTAL 0.4 MG/DL (0.2-1.0); BLOOD UREA NITROGEN 74 mg/dL (7-18); CALCIUM 9.4 MG/DL (8.5-10.1); CARBON DIOXIDE 26 MMOL/L (21-32); CHLORIDE 99 MMOL/L (98-107); CREATININE 6.7 MG/DL (0.55-1.30); FERRITIN 621 NG/ML (8-388); PHOSPHORUS 6.5 MG/DL (2.5-4.9); POTASSIUM 4.6 MMOL/L (3.5-5.1); SODIUM 139 MMOL/L (136-145)
--- NOTE | 2019-08-03 08:20 | NUR ---
NURSE NOTES: pt in bed resting, she is complaining of pain. traffic monitor specialist on pt not complaining of chest pain or SOB. bed in lowest position and locked. call light within reach, bed alarm on, side rails up x2. Will continue to monitor pt.
[2019-08-03 08:24] LABS: % IRON SATURATION 12 % (15-50); IRON 23 ug/dL (50-175); TOTAL IRON BINDING CAPACITY 188 ug/dL (250-450)
[2019-08-03] MEDS: Docusate 100mg cap ORAL SCH ×3 (09:00→17:51)
--- NOTE | 2019-08-03 09:00 | NUR ---
nurse notes latest labs results reported to Doctor Jimi .
[2019-08-03] MEDS: Losartan 50mg tab ORAL SCH (09:01)
[2019-08-03] MEDS: Heparin 5000 units/ml inj SUBQ SCH ×2 (09:05→21:12)
[2019-08-03] MEDS ORDERED: D5NS 1000ml IV ONE (09:48)
[2019-08-03] MEDS ORDERED: Tubing Blood Filter IV ONE (09:48)
[2019-08-03] MEDS ORDERED: NS 275ml ONE (09:48)
--- NOTE | 2019-08-03 11:13 | Nephrology Progress Note ---
Assessment/Plan Problem List: (1) Hyperkalemia (2) ESRF (end stage renal failure) (3) Hemodialysis patient (4) History of hypertension (5) History of diabetes mellitus (6) Clavicular fracture Assessment End-stage renal disease on hemodialysis Sunday Fall Chest wall contusion Clavicular fracture Ribs, multiple fractures Hyperkalemia due to end-stage renal disease History of hypertension History of diabetes mellitus Plan Dialysis urgent with low potassium bath done July 31 Next dialysis August 03 Hyper kalemia not corrected Add phosphate binders and adjust the dose Keep the blood pressure and blood sugar under control Pain management for fractures Per orders Subjective ROS Limited/Unobtainable: No Constitutional: Reports: malaise, weakness Objective Objective Last 24 Hour Vital Signs Date Time Temp Pulse Resp B/P (MAP) Pulse Ox O2 Delivery O2 Flow Rate FiO2 08/03/19 09:01 185/75 08/03/19 09:01 91 185/75 08/03/19 08:00 97.9 91 20 185/75 (111) 97 08/03/19 07:25 99 Nasal Cannula 2.0 28 08/03/19 07:25 92 18 99 Nasal Cannula 2.0 28 08/03/19 04:00 79 08/03/19 04:00 98.2 79 28 148/80 (102) 99 08/03/19 00:00 100.8 80 28 152/60 (90) 100 08/03/19 00:00 78 08/02/19 21:01 Nasal Cannula 2.0 08/02/19 20:08 96 Nasal Cannula 2.0 28 08/02/19 20:08 83 18 96 Nasal Cannula 2.0 28 08/02/19 20:00 77 08/02/19 20:00 97.7 79 26 146/52 (83) 100 08/02/19 16:00 96.8 58 20 129/65 (86) 97 08/02/19 16:00 77 08/02/19 12:00 82 08/02/19 12:00 97.5 86 18 137/58 (84) 100 Intake and Output 08/02/19 08/03/19 19:00 07:00 Intake Total 790 ml Output Total 1 ml Balance 789 ml Intake Oral 140 ml Other 650 ml Stool Total 1 ml # Voids 2 2 # Bowel Movements 1 Current Medications Medications (Trade) Dose Ordered Sig/Allison Route PRN Reason Start Time Stop Time Status Last Admin Dose Admin Acetaminophen (Tylenol) 650 mg Q4H PRN ORAL fever 07/31/19 17:15 08/30/19 17:14 Acetaminophen/ Hydrocodone Bitart ([place] 10/325) 1 tab Q4H PRN ORAL For Pain 07/31/19 17:15 08/07/19 17:14 08/02/19 18:26 Albuterol/ Ipratropium (Albuterol/ Ipratropium) 3 ml Q6H PRN HHN dyspnea 07/31/19 17:15 08/05/19 17:14 Amlodipine Besylate (Norvasc) 2.5 mg DAILY ORAL 08/01/19 09:00 08/31/19 08:59 08/03/19 09:01 Clonidine HCl (Catapres Tab) 0.1 mg Q4H PRN ORAL For High Blood Pressure 07/31/19 17:15 10/29/19 17:14 Dextrose (Dextrose 50%) 25 ml Q30M PRN IV Hypoglycemia 07/31/19 17:15 10/29/19 17:14 Dextrose (Dextrose 50%) 50 ml Q30M PRN IV Hypoglycemia 07/31/19 17:15 10/29/19 17:14 Docusate Sodium (Colace) 100 mg TWICE A DAY ORAL 08/01/19 10:45 08/31/19 10:44 08/03/19 09:00 Gabapentin (Neurontin) 100 mg BEDTIME ORAL 07/31/19 21:00 08/30/19 20:59 08/02/19 23:15 Heparin Sodium (Porcine) (Heparin 5000 units/ml) 5,000 units EVERY 12 HOURS SUBQ 07/31/19 21:00 09/14/19 20:59 08/03/19 09:05 Insulin Aspart (NovoLOG) BEFORE MEALS AND HS SUBQ 07/31/19 21:00 10/29/19 20:59 08/02/19 18:23 Losartan Potassium (Cozaar) 50 mg DAILY ORAL 08/01/19 09:00 08/31/19 08:59 08/03/19 09:01 Ondansetron HCl (Zofran) 4 mg Q6H PRN IVP Nausea & Vomiting 07/31/19 17:15 08/30/19 17:14 Pantoprazole (Protonix) 40 mg BID ORAL 08/01/19 10:45 08/31/19 10:44 08/03/19 09:01 Polyethylene Glycol (Miralax) 17 gm HSPRN PRN ORAL Constipation 07/31/19 17:15 08/30/19 17:14 Sevelamer Carbonate (Renvela) 800 mg THREE TIMES A DAY ORAL 08/02/19 13:00 10/31/19 12:59 08/03/19 09:00 Zolpidem Tartrate (Ambien) 5 mg HSPRN PRN ORAL Insomnia 07/31/19 21:00 08/07/19 20:59 Laboratory Tests 08/03/19 06:15: White Blood Count 4.5L, Red Blood Count 3.38L, Hemoglobin 10.9L, Hematocrit 32.7L, Mean Corpuscular Volume 97, Mean Corpuscular Hemoglobin 32.2H, Mean Corpuscular Hemoglobin Concent 33.3, Red Cell Distribution Width 13.2, Platelet Count 210, Mean Platelet Volume 5.2L, Neutrophils (%) (Auto) 60.5, Lymphocytes ( %) (Auto) 27.2, Monocytes (%) (Auto) 8.7, Eosinophils (%) (Auto) 2.8, Basophils (%) (Auto) 0.8, Sodium Level 139, Potassium Level 4.6, Chloride Level 99, Carbon Dioxide Level 26, Anion Gap 14, Blood Urea Nitrogen 74H, Creatinine 6.7H , Estimat Glomerular Filtration Rate 6.1, Glucose Level 160H, Uric Acid 6.6, Calcium Level 9.4, Phosphorus Level 6.5H, Magnesium Level 2.6H, Iron Level 23L, Total Iron Binding Capacity 188L, Percent Iron Saturation 12L, Unsaturated Iron Binding 165, Ferritin 621H, Total Bilirubin 0.4, Aspartate Amino Transf (AST/ SGOT) 23, Alanine Aminotransferase (ALT/SGPT) 20, Alkaline Phosphatase 167H, C- Reactive Protein, Quantitative 22.0H, Pro-B-Type Natriuretic Peptide 5444H, Total Protein 7.3, Albumin 2.7L, Globulin 4.6, Albumin/Globulin Ratio 0.6L Height (Feet): 4 Height (Inches): 11.00 Weight (Pounds): 94 General Appearance: mild distress - As a result of left clavicular fracture pain Cardiovascular: normal rate Respiratory/Chest: decreased breath sounds Abdomen: soft Marcelo Skaggs MD Aug 03, 2019 11:13
[2019-08-03 12:00] VITALS: BP 158/70
--- NOTE | 2019-08-03 15:35 | Internal Med Progress Note ---
Subjective Date of Service: Aug 03, 2019 Physician Name AlpaStephen Attending Physician Rafael Marques MD Current Medications Medications (Trade) Dose Ordered Sig/Allison Route PRN Reason Start Time Stop Time Status Last Admin Dose Admin Acetaminophen (Tylenol) 650 mg Q4H PRN ORAL fever 07/31/19 17:15 08/30/19 17:14 Acetaminophen/ Hydrocodone Bitart ([place] 10/325) 1 tab Q4H PRN ORAL For Pain 07/31/19 17:15 08/07/19 17:14 08/02/19 18:26 Albuterol/ Ipratropium (Albuterol/ Ipratropium) 3 ml Q6H PRN HHN dyspnea 07/31/19 17:15 08/05/19 17:14 Amlodipine Besylate (Norvasc) 2.5 mg DAILY ORAL 08/01/19 09:00 08/31/19 08:59 08/03/19 09:01 Clonidine HCl (Catapres Tab) 0.1 mg Q4H PRN ORAL For High Blood Pressure 07/31/19 17:15 10/29/19 17:14 Dextrose (Dextrose 50%) 25 ml Q30M PRN IV Hypoglycemia 07/31/19 17:15 10/29/19 17:14 Dextrose (Dextrose 50%) 50 ml Q30M PRN IV Hypoglycemia 07/31/19 17:15 10/29/19 17:14 Docusate Sodium (Colace) 100 mg TID ORAL 08/03/19 13:00 08/31/19 10:44 08/03/19 12:34 Gabapentin (Neurontin) 100 mg BEDTIME ORAL 07/31/19 21:00 08/30/19 20:59 08/02/19 23:15 Heparin Sodium (Porcine) (Heparin 5000 units/ml) 5,000 units EVERY 12 HOURS SUBQ 07/31/19 21:00 09/14/19 20:59 08/03/19 09:05 Insulin Aspart (NovoLOG) BEFORE MEALS AND HS SUBQ 07/31/19 21:00 10/29/19 20:59 08/03/19 12:36 Losartan Potassium (Cozaar) 50 mg DAILY ORAL 08/01/19 09:00 08/31/19 08:59 08/03/19 09:01 Ondansetron HCl (Zofran) 4 mg Q6H PRN IVP Nausea & Vomiting 07/31/19 17:15 08/30/19 17:14 Pantoprazole (Protonix) 40 mg BID ORAL 08/01/19 10:45 08/31/19 10:44 08/03/19 09:01 Polyethylene Glycol (Miralax) 17 gm HSPRN PRN ORAL Constipation 07/31/19 17:15 08/30/19 17:14 Sevelamer Carbonate (Renvela) 1,600 mg THREE TIMES A DAY ORAL 08/03/19 13:00 10/31/19 12:59 08/03/19 12:34 Zolpidem Tartrate (Ambien) 5 mg HSPRN PRN ORAL Insomnia 07/31/19 21:00 08/07/19 20:59 Allergies: Coded Allergies: No Known Allergies (Unverified , 06/01/14) ROS Limited/Unobtainable: No Constitutional: Reports: no symptoms HEENT: Reports: no symptoms Cardiovascular: Reports: no symptoms Respiratory: Reports: no symptoms Gastrointestinal/Abdominal: Reports: no symptoms Genitourinary: Reports: no symptoms Neurologic/Psychiatric: Reports: no symptoms Subjective 69 YO F admitted with rib and shoulder pain after mechanical fall. Cover for Int Prasad - Dr Marques Objective Last Vital Signs Date Time Temp Pulse Resp B/P (MAP) Pulse Ox O2 Delivery O2 Flow Rate FiO2 08/03/19 09:01 185/75 08/03/19 09:01 91 08/03/19 08:00 97.9 20 97 08/03/19 07:25 Nasal Cannula 2.0 28 Laboratory Tests Test 08/03/19 06:15 White Blood Count 4.5 K/UL (4.8-10.8) L Red Blood Count 3.38 M/UL (4.20-5.40) L Hemoglobin 10.9 G/DL (12.0-16.0) L Hematocrit 32.7 % (37.0-47.0) L Mean Corpuscular Volume 97 FL (80-99) Mean Corpuscular Hemoglobin 32.2 PG (27.0-31.0) H Mean Corpuscular Hemoglobin Concent 33.3 G/DL (32.0-36.0) Red Cell Distribution Width 13.2 % (11.6-14.8) Platelet Count 210 K/UL (150-450) Mean Platelet Volume 5.2 FL (6.5-10.1) L Neutrophils (%) (Auto) 60.5 % (45.0-75.0) Lymphocytes (%) (Auto) 27.2 % (20.0-45.0) Monocytes (%) (Auto) 8.7 % (1.0-10.0) Eosinophils (%) (Auto) 2.8 % (0.0-3.0) Basophils (%) (Auto) 0.8 % (0.0-2.0) Sodium Level 139 MMOL/L (136-145) Potassium Level 4.6 MMOL/L (3.5-5.1) Chloride Level 99 MMOL/L (98-107) Carbon Dioxide Level 26 MMOL/L (21-32) Anion Gap 14 mmol/L (5-15) Blood Urea Nitrogen 74 mg/dL (7-18) H Creatinine 6.7 MG/DL (0.55-1.30) H Estimat Glomerular Filtration Rate 6.1 mL/min (>60) Glucose Level 160 MG/DL (74-106) H Uric Acid 6.6 MG/DL (2.6-7.2) Calcium Level 9.4 MG/DL (8.5-10.1) Phosphorus Level 6.5 MG/DL (2.5-4.9) H Magnesium Level 2.6 MG/DL (1.8-2.4) H Iron Level 23 ug/dL (50-175) L Total Iron Binding Capacity 188 ug/dL (250-450) L Percent Iron Saturation 12 % (15-50) L Unsaturated Iron Binding 165 ug/dL (112-346) Ferritin 621 NG/ML (8-388) H Total Bilirubin 0.4 MG/DL (0.2-1.0) Aspartate Amino Transf (AST/SGOT) 23 U/L (15-37) Alanine Aminotransferase (ALT/SGPT) 20 U/L (12-78) Alkaline Phosphatase 167 U/L (46-116) H C-Reactive Protein, Quantitative 22.0 mg/dL (0.00-0.90) H Pro-B-Type Natriuretic Peptide 5444 pg/mL (0-125) H Total Protein 7.3 G/DL (6.4-8.2) Albumin 2.7 G/DL (3.4-5.0) L Globulin 4.6 g/dL Albumin/Globulin Ratio 0.6 (1.0-2.7) L Microbiology Date/Time Source Procedure Growth Status 08/01/19 01:00 Nasal Nares MRSA Culture - Final NO METHICILLIN RESISTANT STAPH AUREUS... Complete 08/01/19 01:00 Rectum - Final NO CARBAPENEM-RESISTANT ENTEROBACTERI... Complete 08/01/19 01:00 Rectum VRE Culture - Final NO VANCOMYCIN RESISTANT ENTEROCOCCUS ... Complete Intake and Output 08/02/19 08/03/19 19:00 07:00 Intake Total 790 ml Output Total 1 ml Balance 789 ml Intake Oral 140 ml Other 650 ml Stool Total 1 ml # Voids 2 2 # Bowel Movements 1 Objective General Appearance: WD/WN, no apparent distress, alert EENT: PERRL/EOMI, normal ENT inspection Neck: non-tender, normal alignment, supple, normal inspection Cardiovascular: normal peripheral pulses, normal rate, regular rhythm, no gallop/murmur, no JVD Respiratory/Chest: chest wall non-tender, lungs clear, no respiratory distress , no accessory muscle use, decreased breath sounds Abdomen: normal bowel sounds, non tender, soft, no organomegaly, no mass Extremities: normal range of motion, non-tender 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 Hemodialysis 08/04/19 (8) Hemodialysis patient Stephen Yuen MD Aug 03, 2019 15:35
[2019-08-03 16:00] VITALS: BP 171/72
[2019-08-03] MEDS: HYDROcodone/Acetamin 10/325 tab ORAL PRN (17:50)
--- NOTE | 2019-08-03 19:15 | NUR ---
NURSE NOTES: Received report from JEFRY Wheeler. Patient is awake, lying in semi akhtar's; resting comfortably. A/Ox4. Denies pain at this time. No signs of acute distress noted. Checked IV site and flushed. No erythema, bleeding or infiltration noted. ASIM AV shunt noted. Bed at lowest position, brakes on, bed alarm on, siderailsx3. Call light within reach. Will continue to monitor.
--- NOTE | 2019-08-03 19:20 | NUR ---
HAND-OFF: Report given to lexii Smith in stable condition.
[2019-08-03 20:00] VITALS: BP 151/62
[2019-08-04] VITALS: BP 112/54
--- NOTE | 2019-08-04 02:02 | NUR ---
NURSE NOTES: Resting throughout the night. No significant change of condition noted. Will continue to monitor.
--- NOTE | 2019-08-04 02:05 | NUR ---
NURSE NOTES: Called [facility] and spoke with Vilma for Hemodialysis schedule 08/03 mentioned to inform caption writer HD RN.
[2019-08-04 04:00] VITALS: BP 129/51
[2019-08-04] MEDS: NovoLOG Insulin Flexpen SUBQ SCH ×4 (06:04→21:00)
--- NOTE | 2019-08-04 07:15 | NUR ---
HAND-OFF: Report given to JEFRY Wheeler. Plan of care endorsed.
[2019-08-04 07:37] LABS: BASOPHILS % (AUTO) 0.9 % (0.0-2.0); EOSINOPHILS % (AUTO) 4.1 % (0.0-3.0); HEMATOCRIT 31.3 % (37.0-47.0); HEMOGLOBIN 10.3 G/DL (12.0-16.0); LYMPHOCYTES % (AUTO) 26.8 % (20.0-45.0); MEAN CORPUSCULAR VOLUME 97 FL (80-99); MONOCYTES % (AUTO) 6.4 % (1.0-10.0); NEUTROPHILS % (AUTO) 61.9 % (45.0-75.0); PLATELET COUNT 204 K/UL (150-450); RED BLOOD COUNT 3.22 M/UL (4.20-5.40); RED CELL DISTRIBUTION WIDTH 13.4 % (11.6-14.8); WHITE BLOOD COUNT 3.9 K/UL (4.8-10.8)
--- NOTE | 2019-08-04 07:43 | NUR ---
NURSE NOTES: NURSE NOTES: pt in bed awake and alert x4. pt on historical interpreter, pt reports no chest pain or show any respiratory distress at this time. Call light within reach, bed in lowest position, side rails up x2 for safety, bed alarm on. Will continue to monitor pt.
[2019-08-04 08:00] VITALS: BP 152/61
[2019-08-04 08:25] LABS: ALANINE AMINOTRANSFERASE 22 U/L (12-78); ALBUMIN 2.3 G/DL (3.4-5.0); ALBUMIN/GLOBULIN RATIO 0.5 (1.0-2.7); ALKALINE PHOSPHATASE 154 U/L (46-116); ANION GAP 14 mmol/L (5-15); ASPARTATE AMINO TRANSFERASE 21 U/L (15-37); BILIRUBIN,TOTAL 0.3 MG/DL (0.2-1.0); BLOOD UREA NITROGEN 90 mg/dL (7-18); CALCIUM 8.9 MG/DL (8.5-10.1); CARBON DIOXIDE 21 MMOL/L (21-32); CHLORIDE 100 MMOL/L (98-107); CREATININE 7.4 MG/DL (0.55-1.30); SODIUM 135 MMOL/L (136-145)
[2019-08-04 08:27] LABS: POTASSIUM 6.1 MMOL/L (3.5-5.1)
[2019-08-04] MEDS: Losartan 50mg tab ORAL SCH (09:00)
[2019-08-04] MEDS: HYDROcodone/Acetamin 10/325 tab ORAL PRN (09:04)
[2019-08-04] MEDS: Docusate 100mg cap ORAL SCH ×3 (09:04→18:38)
[2019-08-04] MEDS: Heparin 5000 units/ml inj SUBQ SCH ×2 (09:07→21:00)
--- NOTE | 2019-08-04 09:22 | NUR ---
CASE MANAGEMENT:REVIEW 08/04/19 SI: MULTIPLE RIB FRACTURES CLOSED LT CLAVICULAR FRACTURE. ESRD ON HD 96.7 72 20 152 /61 96% ON 2L/NC H/H-10.3/31.3 K+6.1 BUN+90 CR+74 IS: RENVELA PO TID PROTONIX PO BID NORVASC PO QD COZAAR PO QD NEURONTIN PO QHS NEURONTIN PO QHS : TELEMETRY STATUS DCP: FROM HOME PLAN: HD SCHEDULED FOR TODAY OUTPT DIALYSIS [facility] ( & ) SUNDAY AND SUNDAY 3:45 TO 6:30
[2019-08-04 12:00] VITALS: BP 145/55
[2019-08-04] MEDS ORDERED: RENVELA800 MG ORAL (12:18)
--- NOTE | 2019-08-04 12:29 | Nephrology Progress Note ---
Assessment/Plan Problem List: (1) Hyperkalemia (2) ESRF (end stage renal failure) (3) Hemodialysis patient (4) History of hypertension (5) History of diabetes mellitus (6) Clavicular fracture Assessment End-stage renal disease on hemodialysis Sunday Fall Chest wall contusion Clavicular fracture Ribs, multiple fractures Hyperkalemia due to end-stage renal disease History of hypertension History of diabetes mellitus Plan Change diet to renal diet Dialysis urgent with low potassium bath done July 31 Next dialysis August 03 with low potassium bath Hyper kalemia not corrected Add phosphate binders and adjust the dose Keep the blood pressure and blood sugar under control Pain management for fractures Per orders Subjective ROS Limited/Unobtainable: No Constitutional: Reports: malaise Objective Objective Last 24 Hour Vital Signs Date Time Temp Pulse Resp B/P (MAP) Pulse Ox O2 Delivery O2 Flow Rate FiO2 08/04/19 08:00 96.7 72 20 152/61 (91) 96 08/04/19 07:00 72 18 96 Nasal Cannula 2.0 28 08/04/19 07:00 96 Nasal Cannula 2.0 28 08/04/19 04:00 98.1 74 18 129/51 (77) 96 08/04/19 04:00 73 08/04/19 00:00 70 08/04/19 00:00 97.9 71 18 112/54 (73) 95 08/03/19 21:41 97.5 08/03/19 21:00 Nasal Cannula 2.0 08/03/19 20:08 97 Nasal Cannula 2.0 28 08/03/19 20:08 97 18 97 Nasal Cannula 2.0 28 08/03/19 20:00 100.0 95 20 151/62 (91) 94 08/03/19 20:00 84 08/03/19 17:50 172/70 08/03/19 16:00 91 08/03/19 16:00 99.4 89 19 171/72 (105) 97 Intake and Output 08/03/19 08/04/19 19:00 07:00 Intake Total 840 ml 60 ml Output Total 200 ml 2100 ml Balance 640 ml -2040 ml Intake Oral 840 ml 60 ml Output Urine Total 200 ml 2100 ml # Voids 1 1 # Bowel Movements 1 1 Current Medications Medications (Trade) Dose Ordered Sig/Allison Route PRN Reason Start Time Stop Time Status Last Admin Dose Admin Acetaminophen (Tylenol) 650 mg Q4H PRN ORAL fever 07/31/19 17:15 08/30/19 17:14 08/03/19 21:11 Acetaminophen/ Hydrocodone Bitart ([place] 10/325) 1 tab Q4H PRN ORAL For Pain 07/31/19 17:15 08/07/19 17:14 08/04/19 09:04 Albuterol/ Ipratropium (Albuterol/ Ipratropium) 3 ml Q6H PRN HHN dyspnea 07/31/19 17:15 08/05/19 17:14 Amlodipine Besylate (Norvasc) 2.5 mg DAILY ORAL 08/01/19 09:00 08/31/19 08:59 08/03/19 09:01 Clonidine HCl (Catapres Tab) 0.1 mg Q4H PRN ORAL For High Blood Pressure 07/31/19 17:15 10/29/19 17:14 08/03/19 17:50 Dextrose (Dextrose 50%) 25 ml Q30M PRN IV Hypoglycemia 07/31/19 17:15 10/29/19 17:14 Dextrose (Dextrose 50%) 50 ml Q30M PRN IV Hypoglycemia 07/31/19 17:15 10/29/19 17:14 Docusate Sodium (Colace) 100 mg TID ORAL 08/03/19 13:00 08/31/19 10:44 08/04/19 09:04 Gabapentin (Neurontin) 100 mg BEDTIME ORAL 07/31/19 21:00 08/30/19 20:59 08/03/19 21:08 Heparin Sodium (Porcine) (Heparin 5000 units/ml) 5,000 units EVERY 12 HOURS SUBQ 07/31/19 21:00 09/14/19 20:59 08/04/19 09:07 Insulin Aspart (NovoLOG) BEFORE MEALS AND HS SUBQ 07/31/19 21:00 10/29/19 20:59 08/04/19 06:04 Losartan Potassium (Cozaar) 50 mg DAILY ORAL 08/01/19 09:00 08/31/19 08:59 08/03/19 09:01 Ondansetron HCl (Zofran) 4 mg Q6H PRN IVP Nausea & Vomiting 3/19/20 17:15 08/30/19 17:14 Pantoprazole (Protonix) 40 mg BID ORAL 08/01/19 10:45 08/31/19 10:44 08/04/19 09:04 Polyethylene Glycol (Miralax) 17 gm HSPRN PRN ORAL Constipation 07/31/19 17:15 08/30/19 17:14 Sevelamer Carbonate (Renvela) 1,600 mg THREE TIMES A DAY ORAL 08/03/19 13:00 10/31/19 12:59 08/04/19 09:05 Zolpidem Tartrate (Ambien) 5 mg HSPRN PRN ORAL Insomnia 07/31/19 21:00 08/07/19 20:59 Laboratory Tests 08/04/19 05:59: White Blood Count 3.9L, Red Blood Count 3.22L, Hemoglobin 10.3L, Hematocrit 31.3L, Mean Corpuscular Volume 97, Mean Corpuscular Hemoglobin 32.0H, Mean Corpuscular Hemoglobin Concent 32.9, Red Cell Distribution Width 13.4, Platelet Count 204, Mean Platelet Volume 4.8L, Neutrophils (%) (Auto) 61.9, Lymphocytes ( %) (Auto) 26.8, Monocytes (%) (Auto) 6.4, Eosinophils (%) (Auto) 4.1H, Basophils (%) (Auto) 0.9, Sodium Level 135L, Potassium Level 6.1*H, Chloride Level 100, Carbon Dioxide Level 21, Anion Gap 14, Blood Urea Nitrogen 90H, Creatinine 7.4H, Estimat Glomerular Filtration Rate 5.4, Glucose Level 157H, Calcium Level 8.9, Total Bilirubin 0.3, Aspartate Amino Transf (AST/SGOT) 21, Alanine Aminotransferase (ALT/SGPT) 22, Alkaline Phosphatase 154H, Total Protein 6.8, Albumin 2.3L, Globulin 4.5, Albumin/Globulin Ratio 0.5L Height (Feet): 4 Height (Inches): 11.00 Weight (Pounds): 94 General Appearance: no apparent distress Abdomen: soft Objective No change Marcelo Skaggs MD Aug 04, 2019 12:29
--- NOTE | 2019-08-04 15:37 | NUR ---
DISCHARGE PLANNING PATIENT WAS PREVIOUSLY ON SERVICE WITH [facility] [id number] CHAIR TIME SUNDAY AND SUNDAY @ [id number] T: [phone]
--- NOTE | 2019-08-04 15:43 | NUR ---
*-*DISCHARGE PLANNING*-* CLINICALS HAVE BEEN SENT TO: [facility] P: [phone] F; [phone]
[2019-08-04 16:00] VITALS: BP 131/71
--- NOTE | 2019-08-04 16:23 | NUR ---
*-*DISCHARGE PLANNING*-* PATIENT HAS BEEN REFERRED TO: [facility] P: [phone] F: [phone] WATING ON ACCEPTANCE
--- NOTE | 2019-08-04 17:26 | Pulmonology Progress Note ---
Assessment/Plan Problems: (1) Hyperkalemia (2) Clavicular fracture (3) Hemodialysis patient (4) Ribs, multiple fractures (5) ESRF (end stage renal failure) (6) Fall (7) Chest wall contusion (8) History of hypertension (9) History of diabetes mellitus Assessment/Plan better HD sliding scale dc planning Subjective ROS Limited/Unobtainable: No Constitutional: Reports: no symptoms HEENT: Repors: no symptoms Allergies: Coded Allergies: No Known Allergies (Unverified , 06/01/14) Objective Last 24 Hour Vital Signs Date Time Temp Pulse Resp B/P (MAP) Pulse Ox O2 Delivery O2 Flow Rate FiO2 08/04/19 08:00 96.7 72 20 152/61 (91) 96 08/04/19 07:00 72 18 96 Nasal Cannula 2.0 28 08/04/19 07:00 96 Nasal Cannula 2.0 28 08/04/19 04:00 98.1 74 18 129/51 (77) 96 08/04/19 04:00 73 08/04/19 00:00 70 08/04/19 00:00 97.9 71 18 112/54 (73) 95 08/03/19 21:41 97.5 08/03/19 21:00 Nasal Cannula 2.0 08/03/19 20:08 97 Nasal Cannula 2.0 28 08/03/19 20:08 97 18 97 Nasal Cannula 2.0 28 08/03/19 20:00 100.0 95 20 151/62 (91) 94 08/03/19 20:00 84 08/03/19 17:50 172/70 Intake and Output 08/03/19 08/04/19 19:00 07:00 Intake Total 840 ml 60 ml Output Total 200 ml 2100 ml Balance 640 ml -2040 ml Intake Oral 840 ml 60 ml Output Urine Total 200 ml 2100 ml # Voids 1 1 # Bowel Movements 1 1 Objective General Appearance: WD/WN HEENT: normocephalic, atraumatic Respiratory/Chest: chest wall non-tender, lungs clear Breasts: no masses Cardiovascular: normal peripheral pulses Abdomen: normal bowel sounds, soft, non tender Genitourinary: normal external genitalia Extremities: no cyanosis Skin: no rash Neurologic/Psychiatric: brim stiffener II-XII grossly normal Laboratory Tests 08/04/19 05:59: White Blood Count 3.9L, Red Blood Count 3.22L, Hemoglobin 10.3L, Hematocrit 31.3L, Mean Corpuscular Volume 97, Mean Corpuscular Hemoglobin 32.0H, Mean Corpuscular Hemoglobin Concent 32.9, Red Cell Distribution Width 13.4, Platelet Count 204, Mean Platelet Volume 4.8L, Neutrophils (%) (Auto) 61.9, Lymphocytes ( %) (Auto) 26.8, Monocytes (%) (Auto) 6.4, Eosinophils (%) (Auto) 4.1H, Basophils (%) (Auto) 0.9, Sodium Level 135L, Potassium Level 6.1*H, Chloride Level 100, Carbon Dioxide Level 21, Anion Gap 14, Blood Urea Nitrogen 90H, Creatinine 7.4H, Estimat Glomerular Filtration Rate 5.4, Glucose Level 157H, Calcium Level 8.9, Total Bilirubin 0.3, Aspartate Amino Transf (AST/SGOT) 21, Alanine Aminotransferase (ALT/SGPT) 22, Alkaline Phosphatase 154H, Total Protein 6.8, Albumin 2.3L, Globulin 4.5, Albumin/Globulin Ratio 0.5L Current Medications Medications (Trade) Dose Ordered Sig/Allison Route PRN Reason Start Time Stop Time Status Last Admin Dose Admin Acetaminophen (Tylenol) 650 mg Q4H PRN ORAL fever 07/31/19 17:15 08/30/19 17:14 08/03/19 21:11 Acetaminophen/ Hydrocodone Bitart ([place] 10/325) 1 tab Q4H PRN ORAL For Pain 07/31/19 17:15 08/07/19 17:14 08/04/19 09:04 Albuterol/ Ipratropium (Albuterol/ Ipratropium) 3 ml Q6H PRN HHN dyspnea 07/31/19 17:15 08/05/19 17:14 Amlodipine Besylate (Norvasc) 2.5 mg DAILY ORAL 08/01/19 09:00 08/31/19 08:59 08/03/19 09:01 Clonidine HCl (Catapres Tab) 0.1 mg Q4H PRN ORAL For High Blood Pressure 07/31/19 17:15 10/29/19 17:14 08/03/19 17:50 Dextrose (Dextrose 50%) 25 ml Q30M PRN IV Hypoglycemia 07/31/19 17:15 10/29/19 17:14 Dextrose (Dextrose 50%) 50 ml Q30M PRN IV Hypoglycemia 07/31/19 17:15 10/29/19 17:14 Docusate Sodium (Colace) 100 mg TID ORAL 08/03/19 13:00 08/31/19 10:44 08/04/19 09:04 Gabapentin (Neurontin) 100 mg BEDTIME ORAL 07/31/19 21:00 08/30/19 20:59 08/03/19 21:08 Heparin Sodium (Porcine) (Heparin 5000 units/ml) 5,000 units EVERY 12 HOURS SUBQ 07/31/19 21:00 09/14/19 20:59 08/04/19 09:07 Insulin Aspart (NovoLOG) BEFORE MEALS AND HS SUBQ 07/31/19 21:00 10/29/19 20:59 08/04/19 06:04 Losartan Potassium (Cozaar) 50 mg DAILY ORAL 08/01/19 09:00 08/31/19 08:59 08/03/19 09:01 Ondansetron HCl (Zofran) 4 mg Q6H PRN IVP Nausea & Vomiting 07/31/19 17:15 08/30/19 17:14 Pantoprazole (Protonix) 40 mg BID ORAL 08/01/19 10:45 08/31/19 10:44 08/04/19 09:04 Polyethylene Glycol (Miralax) 17 gm HSPRN PRN ORAL Constipation 07/31/19 17:15 08/30/19 17:14 Sevelamer Carbonate (Renvela) 1,600 mg THREE TIMES A DAY ORAL 08/03/19 13:00 10/31/19 12:59 08/04/19 09:05 Zolpidem Tartrate (Ambien) 5 mg HSPRN PRN ORAL Insomnia 07/31/19 21:00 08/07/19 20:59 Reji Riojas MD Aug 04, 2019 17:26
--- NOTE | 2019-08-04 18:45 | Internal Med Progress Note ---
Subjective Date of Service: Aug 04, 2019 Physician Name AlpaStephen Attending Physician Rafael Marques MD Current Medications Medications (Trade) Dose Ordered Sig/Allison Route PRN Reason Start Time Stop Time Status Last Admin Dose Admin Acetaminophen (Tylenol) 650 mg Q4H PRN ORAL fever 07/31/19 17:15 08/30/19 17:14 08/03/19 21:11 Acetaminophen/ Hydrocodone Bitart (Barton 10/325) 1 tab Q4H PRN ORAL For Pain 07/31/19 17:15 08/07/19 17:14 08/04/19 09:04 Albuterol/ Ipratropium (Albuterol/ Ipratropium) 3 ml Q6H PRN HHN dyspnea 07/31/19 17:15 08/05/19 17:14 Amlodipine Besylate (Norvasc) 2.5 mg DAILY ORAL 08/01/19 09:00 08/31/19 08:59 08/03/19 09:01 Clonidine HCl (Catapres Tab) 0.1 mg Q4H PRN ORAL For High Blood Pressure 07/31/19 17:15 10/29/19 17:14 08/03/19 17:50 Dextrose (Dextrose 50%) 25 ml Q30M PRN IV Hypoglycemia 07/31/19 17:15 10/29/19 17:14 Dextrose (Dextrose 50%) 50 ml Q30M PRN IV Hypoglycemia 07/31/19 17:15 10/29/19 17:14 Docusate Sodium (Colace) 100 mg TID ORAL 08/03/19 13:00 08/31/19 10:44 08/04/19 18:38 Gabapentin (Neurontin) 100 mg BEDTIME ORAL 07/31/19 21:00 08/30/19 20:59 08/03/19 21:08 Heparin Sodium (Porcine) (Heparin 5000 units/ml) 5,000 units EVERY 12 HOURS SUBQ 07/31/19 21:00 09/14/19 20:59 08/04/19 09:07 Insulin Aspart (NovoLOG) BEFORE MEALS AND HS SUBQ 07/31/19 21:00 10/29/19 20:59 08/04/19 06:04 Losartan Potassium (Cozaar) 50 mg DAILY ORAL 08/01/19 09:00 08/31/19 08:59 08/03/19 09:01 Ondansetron HCl (Zofran) 4 mg Q6H PRN IVP Nausea & Vomiting 07/31/19 17:15 08/30/19 17:14 Pantoprazole (Protonix) 40 mg BID ORAL 08/01/19 10:45 08/31/19 10:44 08/04/19 18:38 Polyethylene Glycol (Miralax) 17 gm HSPRN PRN ORAL Constipation 07/31/19 17:15 08/30/19 17:14 Sevelamer Carbonate (Renvela) 1,600 mg THREE TIMES A DAY ORAL 08/03/19 13:00 10/31/19 12:59 08/04/19 18:36 Zolpidem Tartrate (Ambien) 5 mg HSPRN PRN ORAL Insomnia 07/31/19 21:00 08/07/19 20:59 Allergies: Coded Allergies: No Known Allergies (Unverified , 06/01/14) ROS Limited/Unobtainable: No Constitutional: Reports: no symptoms HEENT: Reports: no symptoms Cardiovascular: Reports: no symptoms Respiratory: Reports: no symptoms Gastrointestinal/Abdominal: Reports: no symptoms Genitourinary: Reports: no symptoms Neurologic/Psychiatric: Reports: no symptoms Subjective 69 YO F admitted with rib and shoulder pain after mechanical fall. Cover for Int Prasad - Dr Marques Objective Last Vital Signs Date Time Temp Pulse Resp B/P (MAP) Pulse Ox O2 Delivery O2 Flow Rate FiO2 08/04/19 08:00 96.7 72 20 152/61 (91) 96 08/04/19 07:00 Nasal Cannula 2.0 28 Laboratory Tests Test 08/04/19 05:59 White Blood Count 3.9 K/UL (4.8-10.8) L Red Blood Count 3.22 M/UL (4.20-5.40) L Hemoglobin 10.3 G/DL (12.0-16.0) L Hematocrit 31.3 % (37.0-47.0) L Mean Corpuscular Volume 97 FL (80-99) Mean Corpuscular Hemoglobin 32.0 PG (27.0-31.0) H Mean Corpuscular Hemoglobin Concent 32.9 G/DL (32.0-36.0) Red Cell Distribution Width 13.4 % (11.6-14.8) Platelet Count 204 K/UL (150-450) Mean Platelet Volume 4.8 FL (6.5-10.1) L Neutrophils (%) (Auto) 61.9 % (45.0-75.0) Lymphocytes (%) (Auto) 26.8 % (20.0-45.0) Monocytes (%) (Auto) 6.4 % (1.0-10.0) Eosinophils (%) (Auto) 4.1 % (0.0-3.0) H Basophils (%) (Auto) 0.9 % (0.0-2.0) Sodium Level 135 MMOL/L (136-145) L Potassium Level 6.1 MMOL/L (3.5-5.1) *H Chloride Level 100 MMOL/L (98-107) Carbon Dioxide Level 21 MMOL/L (21-32) Anion Gap 14 mmol/L (5-15) Blood Urea Nitrogen 90 mg/dL (7-18) H Creatinine 7.4 MG/DL (0.55-1.30) H Estimat Glomerular Filtration Rate 5.4 mL/min (>60) Glucose Level 157 MG/DL (74-106) H Calcium Level 8.9 MG/DL (8.5-10.1) Total Bilirubin 0.3 MG/DL (0.2-1.0) Aspartate Amino Transf (AST/SGOT) 21 U/L (15-37) Alanine Aminotransferase (ALT/SGPT) 22 U/L (12-78) Alkaline Phosphatase 154 U/L (46-116) H Total Protein 6.8 G/DL (6.4-8.2) Albumin 2.3 G/DL (3.4-5.0) L Globulin 4.5 g/dL Albumin/Globulin Ratio 0.5 (1.0-2.7) L Intake and Output 08/03/19 08/04/19 19:00 07:00 Intake Total 840 ml 60 ml Output Total 200 ml 2100 ml Balance 640 ml -2040 ml Intake Oral 840 ml 60 ml Output Urine Total 200 ml 2100 ml # Voids 1 1 # Bowel Movements 1 1 Objective General Appearance: WD/WN, no apparent distress, alert EENT: PERRL/EOMI, normal ENT inspection Neck: non-tender, normal alignment, supple, normal inspection Cardiovascular: normal peripheral pulses, normal rate, regular rhythm, no gallop/murmur, no JVD Respiratory/Chest: chest wall non-tender, lungs clear, no respiratory distress , no accessory muscle use, decreased breath sounds Abdomen: normal bowel sounds, non tender, soft, no organomegaly, no mass Extremities: normal range of motion, non-tender Neurologic: filter filler II-XII grossly normal, no motor/sensory deficits Skin: normal pigmentation, warm/dry Assessment/Plan Problem List: (1) Diabetes mellitus Assessment & Plan: continue novolog sliding scale (2) Hypertension (3) Multiple fractures of ribs, left side, initial encounter for closed fracture Assessment & Plan: pain management (4) Closed left clavicular fracture Assessment & Plan: pain management (5) Left shoulder pain (6) Rib pain on left side (7) ESRF (end stage renal failure) Assessment & Plan: Nephrology=Dr Skaggs. Hemodialysis 08/04/19 (8) Hemodialysis patient Assessment/Plan Discharge planning Stephen Yuen MD Aug 04, 2019 18:45
--- NOTE | 2019-08-04 19:30 | NUR ---
NURSE NOTES: Received pt and report from JEFRY Wheeler. Observed pt resting in bed with both eyes open. Pt is A/Ox3. panel monitor is in placed, IV site intact, asymptomatic, and patent. Pt is being discharge home; awaiting for family members. Bed is in the lowest position and locked. Call light and bedside table is within reach. No signs/symptoms of acute distress noted at this time. Will continue plan of care until family member arrives.
--- NOTE | 2019-08-04 19:36 | NUR ---
HAND-OFF: Report given to Teresita/Rn, pt in stable condition.
[2019-08-04 20:00] VITALS: BP 148/70
--- NOTE | 2019-08-04 21:15 | NUR ---
NURSE NOTES: Pt discharge home with family members via car. Pt brought down to car via wheelchair. Pt transferred to car without any incident. Discharge education given to patient and family member by JEFRY Wheeler. Belongings list checked. residential monitor and IV removed; no bleeding noted. Pt is in stable condition.
--- NOTE | 2019-08-05 09:41 | Discharge Summary ---
Discharge Summary Discharge Summary _ DATE OF ADMISSION: 07/31/2019 DATE OF DISCHARGE: 08/04/2019 DISCHARGED BY: Dr. Dye REASON FOR ADMISSION: 69 years old female with past medical history of hypertension, diabetes mellitus , end-stage renal disease, on hemodialysis Sunday , Sunday, Sunday, presented with complaint of left shoulder pain after mechanical fall in the bathroom. Patient denied loss of consciousness. Patient denied head injury. Patient denied nausea and vomiting. Pain reported as sharp, achy, aggravated with movement and alleviated with rest. Pain described as mild and intermittent. No chest pain, no shortness of breath. Upon evaluation blood pressure was elevated 170/63, otherwise vital signs were stable. Laboratory work-up revealed no leukocytosis , stable hemoglobin, hematocrit, and platelet count. Potassium 5.6. BUN 60, creatinine 6.6, consistent with known history of end-stage renal disease. Glucose 236. Stable LFT. Albumin 3.5. EKG revealed sinus rhythm , no acute ischemic changes. X-ray of the left shoulder revealed acute left clavicle fracture. Acute rib fracture. X-ray of the left humerus revealed no acute injury. X-ray of the elbow left elbow showed no acute injury. CT of the chest demonstrated multiple rib fracture on the left side. No pneumothorax or associated abnormality. Acute fracture of the left clavicle. In emergency department patient received analgesic, insulin , treated for hyperkalemia and admitted for further management. CONSULTANTS: pulmonary Dr. Riojas crisis therapist Dr. Skaggs [facility]: Patient admitted to medical surgical floor. Pain management was addressed. Supportive care provided. Fall precautions maintained. Antihypertensive regimen consisted of calcium channel malinda , angiotensin receptor malinda and clonidine for blood pressure spikes continued. DVT and GI prophylaxis provided. Hemodialysis provided as per crisis therapist recommendation with close monitoring of volumes and renal parameters. Electrolytes corrected as needed. Phosphorus binders provided . Home medication resumed. Supplemental oxygen was on board as needed to keep oximetry above 92%. Pulmonary toilet with bronchodilator provided as needed. Blood sugar was managed with sliding scale of insulin. Bowel regimen instituted. Patient clinically stabilized and was ready for discharge home FINAL DIAGNOSES: Multiply fractures of ribs left side, secondary to mechanical fall Left clavicular fracture secondary to mechanical fall Chest wall confusion Left shoulder pain secondary to clavicle fracture Rib pain on the left side secondary to rib fracture End-stage renal disease on hemodialysis Diabetes mellitus Hypertension Hyperkalemia DISCHARGE MEDICATIONS: See Medication Reconciliation list. DISCHARGE INSTRUCTIONS: Patient was discharged home. Follow-up with a primary care provider in 1 week. I have been assigned to dictate discharge summary for this account. I was not involved in the patient's management. Yulissa Marcus NP Aug 05, 2019 09:41
--- NOTE | 2019-08-05 16:00 | History and Physical Report ---
DATE OF ADMISSION: 07/31/2019 CHIEF COMPLAINT: Recurrent fall. HISTORY OF PRESENT ILLNESS: This is a 69-year-old female with past medical history significant for diabetes type 2, hypertension, end-stage renal disease on hemodialysis, Sunday, Sunday, Sunday who presented to the emergency department after had a fall, sustained injury to the left side of body. The patient was complaining of left shoulder pain, left rib cage pain after a mechanical fall in the bathroom. She had sharp achy pain aggravated with movement, relieved with rest. Severity was mild. The patient was found shortly after initial evaluation in the emergency department was noted to have left-sided multiple ribs as well as clavicle fracture with hyperkalemia. Subsequently, the patient was admitted to telemetry for pain management and possible dialysis. PAST MEDICAL HISTORY/PAST SURGICAL HISTORY: As above history of end-stage renal disease on hemodialysis Sunday, Sunday, Sunday, hypertension, diabetes type 2, history of WINTER INTERN shunt placement in the left upper extremity. MEDICATIONS: At home significant for Norvasc 5 mg p.o. daily, gabapentin 100 mg at night, losartan 50 mg daily, multivitamin 1 tablet p.o. daily, Actos 50 mg daily. ALLERGIES: No known drug allergies. SOCIAL HISTORY: No smoking, alcohol, or drugs. FAMILY HISTORY: Noncontributory. REVIEW OF SYSTEMS: Mostly as above. Denies any dysuria, frequency, or hematuria. Complained of severe pain on the left side of the rib cage throughout the thoracic area. Denies any hemoptysis or hematochezia. Denies any suicidal or homicidal ideation. PHYSICAL EXAMINATION: VITAL SIGNS: On admission, temperature 98.2, pulse of 74, respirations 20, blood pressure 170/63, repeat one is 160/72. GENERAL: The patient is awake and responsive, in no acute distress. Cachectic and malnutrition. HEAD AND NECK: Pupils are equal and reactive to light. Extraocular movements intact. Neck was supple. No JVD. LUNGS: Good air entry. No wheezing or rales. HEART: S1, S2. Regular rate and rhythm. No murmurs or gallops. Chest wall, tenderness over the thoracic rib cage. ABDOMEN: Soft, nondistended, nontender. Positive bowel sounds. EXTREMITIES: No cyanosis, clubbing, or edema. Left upper extremity had an AV fistula functional with thrill. NEUROLOGIC: Cranial nerves II through XII grossly normal. The patient moving all extremities. Gait was not assessed due to the patient's status. RECTAL/GENITOURINARY: Refused and deferred. PSYCHIATRIC: Mood and affect is intact. LABORATORY DATA: On admission from the ER, WBC of 6.6, hemoglobin of 12, hematocrit 38, platelets 259. Sodium 137, potassium 4.3, chloride 100, bicarbonate 24, BUN 60, creatinine 6.6, GFR is 6.2, and glucose is 236. Hemoglobin A1c 6.2, ALT of 12, AST of 19, total bilirubin of 0.4. Chest CT scan confirmed that the patient has multiple rib fractures on the left side. No pneumothorax or other associated abnormality. Acute fracture of the left clavicle, arteriovascular disease, scar involvement of the lung bilaterally, suspected old granulomatous disease. ASSESSMENT: 1. History of mechanical fall with multiple left-sided rib fractures and acute left clavicle fracture. 2. End-stage renal disease, on hemodialysis. 3. Hyperkalemia. 4. Diabetes type 2. 5. Hypertension. PLAN: Admit the patient to monitored unit. We will follow up with Dr. Riojas from Pulmonary Critical Care as well as Dr. Marcelo Skaggs from Nephrology. Follow up laboratory. Code status is Full Code. Monitor blood glucose level closely. DVT prophylaxis, heparin subcutaneous. Follow up with the pain management. Rafael Marques M.D. DR: JOEY JOB#: [id number] CC:
== END 2019-08-04 21:10 | disposition home or self-care (01) | DRG 183 ==
LOC: EDBD 13:07 → EMR 15:23 → 2E 15:43 → EDBEDREQSVC 17:06 → EDBEDREQ 18:51 → 2E 08-01 16:01
PROC: 5A1D70Z Performance of Urinary Filtration, Intermittent, Less than 6 Hours Per Day (ICD-10-PCS; principal; 2019-08-01)
DX: S22.42XA Multiple fractures of ribs, left side, initial encounter for closed fracture (principal); N18.6 End stage renal disease; I12.0 Hypertensive chronic kidney disease with stage 5 chronic kidney disease or end stage renal disease; S42.002A Fracture of unspecified part of left clavicle, initial encounter for closed fracture; W19.XXXA Unspecified fall, initial encounter; Y92.002 Bathroom of unspecified non-institutional (private) residence as the place of occurrence of the external cause; E11.22 Type 2 diabetes mellitus with diabetic chronic kidney disease; Z99.2 Dependence on renal dialysis; E87.5 Hyperkalemia; S20.219A Contusion of unspecified front wall of thorax, initial encounter
CPT/HCPCS: 36415; 71250; 80053; 80061; 82607; 82728; 82746; 82962; 82977; 83036; 83540; 83550; 83735; 83880; 84100; 84443; 84550; 85025; 86140; 86706; 87081; 93005; 94664; 96374; 96375; 99285; J1815; J7620